=== PATIENT | female | born 1975 | race African-American/Black ===

== ENCOUNTER 2016-03-14 12:20 | Emergency (ER) | payer MEDICAID ==
[~2016-03-14] VITALS: Ht 165.1 cm; Wt 118.2 kg
[~2016-03-14 12:20] MED LIST: CARA1TAB6 PO; CHOL1CAP34 PO; CYANCRY IM; GABA600T PO; HYDR-3535 PO; MEDR10TA7 PO; OMEP40CA2 PO; POTA-243 PO; PROBCAP4 PO; TRAM50TA PO; VITA200013 PO; ZOFR8TAB PO
[2016-03-14 12:22] VITALS: BP 186/106; PULSE 68; RESP 20; TEMP 97.7; O2SAT 99
--- NOTE | 2016-03-14 13:22 | PD ---
HPI Chief Complaint: Edema Time Seen by Provider: 13:22 Travel History International Travel<30 days: No Contact w/Intl Traveler<30days: No Traveled to known affect area: No History of Present Illness HPI 40 year-old female with history of a gastric sleeve one year ago, lower extremity pain and swelling, presents to the emergency department for evaluation of bilateral lower extremity edema. Patient states she has been followed by Miss Domi Swain an outpatient. The leg swelling started quite some time ago. She's had bilateral lower extremity ultrasounds to rule out DVT. She has gone to physical therapy to help remove fluid. She states there has been an increase in her swelling over the last couple of days. She was seen by Domi and advised to come to emergency department for lab work. She states that she mentioned her kidneys may be a cause of the fluid. Patient states she has felt fine. She has had no fever or chills. No chest pain or tightness. No shortness of breath. PFSH Past Medical History Cancer: No Cardiovascular Problems: No Diabetes: No Diminished Hearing: No Gastrointestinal Disorders: Yes (GERD PRN) GERD: Yes Genitourinary: No Hepatitis: No Hiatal Hernia: No Musculoskeletal: Yes (BACK PAIN) Psychiatric: No Reproductive: No Respiratory: No Thyroid Disease: No ?: Not : 3 Para: 2 : 1 Past Surgical History Abdominal Surgery: Yes (2 C SEC) AICD: No Section: Yes (X2) Cholecystectomy: Yes Gynecologic Surgery: Yes (C SEC X 2) Joint Replacement: No Pacemaker: No Other Surgery: Yes (BARIATRIC SLEEVE) Social History Alcohol Use: No Tobacco Use: No Substance Use: No Allergies-Medications (Allergen,Severity, Reaction): Coded Allergies: Nonsteroidal Anti-Inflammatory Agts (Verified Allergy, Unknown, 01/13/16) PT TOLD NOT TO TAKE THIS AFTER HER BARIATRIC SURGERY Reported Meds & Prescriptions Reported Meds & Active Scripts Active Vitamin D (Cholecalciferol) 2,000 Unit Cap 1 Cap PO DAILY Vitamin D3 (Cholecalciferol) 50,000 Unit Cap 50,000 Units PO Q7D Gabapentin 600 Mg Tab 600 Mg PO HS Reported Tramadol (Tramadol HCl) 50 Mg Tab 50 Mg PO BID PRN Cyanocobalamin 1 Cry Cry 1,000 Mcg IM Q30 DAY Zofran (Ondansetron HCl) 8 Mg Tab 8 Mg PO DAILY Lortab (Hydrocodone-Acetaminophen) 10-325 Mg Tab 1 Tab PO Q4H PRN Medroxyprogesterone Acetate 10 Mg Tab 10 Mg PO DAILY Start day 21 Carafate (Sucralfate) 1 Gm Tab 1 Gm PO TID On empty stomach Probiotic Acidophilus (Probiotic Product) 1 Cap Cap 1 Tab PO TID Omeprazole 40 Mg Cap 40 Mg PO DAILY Klor-Con 10 (Potassium Chloride) 10 Meq Tab 20 Meq PO BID Review of Systems Except as stated in HPI: all other systems reviewed are Neg Physical Exam Narrative GENERAL: Well-nourished female patient, ambulatory and ankle no acute distress SKIN: Warm and dry. HEAD: Atraumatic. Normocephalic. EYES: Pupils equal and round. No scleral icterus. No injection or drainage. ENT: No nasal bleeding or discharge. Mucous membranes pink and moist. NECK: Trachea midline. No JVD. CARDIOVASCULAR: Regular rate and rhythm. No murmur appreciated. RESPIRATORY: No accessory muscle use. Clear to auscultation. Breath sounds equal bilaterally. GASTROINTESTINAL: Abdomen soft, non-tender, nondistended. Hepatic and splenic margins not palpable. MUSCULOSKELETAL: No obvious deformities. No clubbing. No cyanosis. Large lower extremities bilaterally with edema. Distal pulses are palpable. NEUROLOGICAL: Awake and alert. No obvious cranial nerve deficits. Motor grossly within normal limits. Normal speech. PSYCHIATRIC: Appropriate mood and affect; insight and judgment normal. Data Data Last Documented VS Vital Signs Date Time Temp Pulse Resp B/P Pulse Ox O2 Delivery O2 Flow Rate FiO2 03/14/16 12:22 97.7 68 20 186/106 99 Room Air Orders Complete Blood Count With Diff (03/14/16 13:21) Basic Metabolic Panel (Bmp) (03/14/16 13:21) B-Type Natriuretic Peptide (03/14/16 13:22) Urinalysis - C+S If Indicated (03/14/16 13:40) Urine Culture (03/14/16 13:34) Labs Laboratory Tests Test 03/14/16 03/14/16 13:31 13:34 White Blood Count 4.7 TH/MM3 Red Blood Count 3.39 MIL/MM3 Hemoglobin 12.0 GM/DL Hematocrit 35.5 % Mean Corpuscular Volume 104.8 FL Mean Corpuscular Hemoglobin 35.5 PG Mean Corpuscular Hemoglobin 33.8 % Concent Red Cell Distribution Width 20.4 % Platelet Count 153 TH/MM3 Mean Platelet Volume 10.7 FL Neutrophils (%) (Auto) 61.5 % Lymphocytes (%) (Auto) 31.0 % Monocytes (%) (Auto) 6.6 % Eosinophils (%) (Auto) 0.2 % Basophils (%) (Auto) 0.7 % Neutrophils # (Auto) 2.9 TH/MM3 Lymphocytes # (Auto) 1.5 TH/MM3 Monocytes # (Auto) 0.3 TH/MM3 Eosinophils # (Auto) 0.0 TH/MM3 Basophils # (Auto) 0.0 TH/MM3 CBC Comment DIFF FINAL Differential Comment Sodium Level 140 MEQ/L Potassium Level 2.8 MEQ/L Chloride Level 101 MEQ/L Carbon Dioxide Level 29.0 MEQ/L Anion Gap 10 MEQ/L Blood Urea Nitrogen 7 MG/DL Creatinine 0.77 MG/DL Estimat Glomerular Filtration 102 ML/MIN Rate Random Glucose 79 MG/DL Calcium Level 8.8 MG/DL B-Type Natriuretic Peptide 64 PG/ML Urine Color DARK-YELLOW Urine Turbidity HAZY Urine pH 5.5 Urine Specific [place] 1.026 Urine Protein 100 mg/dL Urine Glucose (UA) NEG mg/dL Urine Ketones TRACE mg/dL Urine Occult Blood NEG Urine Nitrite NEG Urine Bilirubin NEG Urine Urobilinogen 4.0 MG/DL Urine Leukocyte Esterase TRACE Urine RBC 1 /hpf Urine WBC 8 /hpf Urine Squamous Epithelial 10 /hpf Cells Urine Bacteria MOD /hpf Urine Mucus MANY /lpf Microscopic Urinalysis Comment CULTURE INDICATED MDM Medical Decision Making Medical Screen Exam Complete: Yes Emergency Medical Condition: Yes Medical Record Reviewed: Yes Differential Diagnosis Lymphedema versus electrolyte abnormality versus CHF versus DVT Narrative Course 40 year-old female presents to the emergency department for evaluation of lower extremity edema. Patient appears without distress. Her vital signs are stable. Workup is initiated in triage. Once a medical bed becomes available, patient will be transferred and care assumed by that provider. Beatriz Funes Mar 14, 2016 13:22
[2016-03-14 13:50] LABS: AUTOMATED NEUTROPHIL # 2.9 TH/MM3 (1.8-7.7); BASOPHIL % 0.7 % (0.0-2.0); EOSINOPHIL % 0.2 % (0.0-4.0); HEMATOCRIT 35.5 % (35.0-46.0); HEMO FLAGS DIFF FINAL; LYMPHOCYTE # 1.5 TH/MM3 (1.0-4.8); MEAN CELL VOLUME 104.8 FL (80.0-100.0); MEAN CORPUSCULAR HEMOGLOBIN 35.5 PG (27.0-34.0); MEAN CORPUSCULAR HGB CONC 33.8 % (32.0-36.0); MONO % 6.6 % (0.0-8.0); NEUT % 61.5 % (16.0-70.0); PLATELET COUNT 153 TH/MM3 (150-450); RED BLOOD COUNT 3.39 MIL/MM3 (4.00-5.30); RED CELL DISTRIBUTION WIDTH 20.4 % (11.6-17.2); WHITE BLOOD COUNT 4.7 TH/MM3 (4.0-11.0)
[2016-03-14 14:15] LABS: POTASSIUM 2.8 MEQ/L (3.5-5.1)
[2016-03-14 14:24] LABS: BACTERIA, URINE MOD /hpf; BLOOD, URINE NEG (NEG); GLUCOSE,URINE NEG (NEG); KETONE, URINE TRACE mg/dL (NEG); MUCUS URINE MANY /lpf (OCC); NITRITE,URINE NEG (NEG); PH, URINE 5.5 (5.0-8.5); SQUAMOUS EPITHELIAL CELL URINE 10 /hpf (0-5); URINE COLOR DARK-YELLOW (YELLW/STRAW)
[2016-03-14 14:28] LABS: COMMENT (UR) CULTURE INDICATED; CULTURE IF INDICATED CULTURE INDICATED
--- NOTE | 2016-03-14 14:40 | PD ---
Data Data Last Documented VS Vital Signs Date Time Temp Pulse Resp B/P Pulse Ox O2 Delivery O2 Flow Rate FiO2 03/14/16 12:22 97.7 68 20 186/106 99 Room Air Orders Complete Blood Count With Diff (03/14/16 13:21) Basic Metabolic Panel (Bmp) (03/14/16 13:21) B-Type Natriuretic Peptide (03/14/16 13:22) Urinalysis - C+S If Indicated (03/14/16 13:40) Urine Culture (03/14/16 13:34) Potassium Chloride (Kcl) (03/14/16 14:45) Electrocardiogram (03/14/16 ) Labs Laboratory Tests Test 03/14/16 03/14/16 13:31 13:34 White Blood Count 4.7 TH/MM3 Red Blood Count 3.39 MIL/MM3 Hemoglobin 12.0 GM/DL Hematocrit 35.5 % Mean Corpuscular Volume 104.8 FL Mean Corpuscular Hemoglobin 35.5 PG Mean Corpuscular Hemoglobin 33.8 % Concent Red Cell Distribution Width 20.4 % Platelet Count 153 TH/MM3 Mean Platelet Volume 10.7 FL Neutrophils (%) (Auto) 61.5 % Lymphocytes (%) (Auto) 31.0 % Monocytes (%) (Auto) 6.6 % Eosinophils (%) (Auto) 0.2 % Basophils (%) (Auto) 0.7 % Neutrophils # (Auto) 2.9 TH/MM3 Lymphocytes # (Auto) 1.5 TH/MM3 Monocytes # (Auto) 0.3 TH/MM3 Eosinophils # (Auto) 0.0 TH/MM3 Basophils # (Auto) 0.0 TH/MM3 CBC Comment DIFF FINAL Differential Comment Sodium Level 140 MEQ/L Potassium Level 2.8 MEQ/L Chloride Level 101 MEQ/L Carbon Dioxide Level 29.0 MEQ/L Anion Gap 10 MEQ/L Blood Urea Nitrogen 7 MG/DL Creatinine 0.77 MG/DL Estimat Glomerular Filtration 102 ML/MIN Rate Random Glucose 79 MG/DL Calcium Level 8.8 MG/DL B-Type Natriuretic Peptide 64 PG/ML Urine Color DARK-YELLOW Urine Turbidity HAZY Urine pH 5.5 Urine Specific [place] 1.026 Urine Protein 100 mg/dL Urine Glucose (UA) NEG mg/dL Urine Ketones TRACE mg/dL Urine Occult Blood NEG Urine Nitrite NEG Urine Bilirubin NEG Urine Urobilinogen 4.0 MG/DL Urine Leukocyte Esterase TRACE Urine RBC 1 /hpf Urine WBC 8 /hpf Urine Squamous Epithelial 10 /hpf Cells Urine Bacteria MOD /hpf Urine Mucus MANY /lpf Microscopic Urinalysis Comment CULTURE INDICATED MDM Supervised Visit with [facility]: Yes Interpretation(s) My review of EKG: Normal sinus rhythm rate of 61, normal axis, normal intervals , qtc 438. Narrative Course Assumed care patient. Patient with chronic lower extremity edema, worsening. Sent for evaluation of her kidneys. Kidney function is normal. She has chronic hypokalemia. She spoke to take 40 mg of potassium 4 times daily. She is not treated for the past 3 days she has not felt well. She gets lymphedema therapy where they placed wraps. She did the wraps off couple days ago to get some relief. She otherwise has been feeling well. Labs show hypokalemia, but normal renal function. We'll check EKG to make sure that there is no evidence of cardiac effects. Patient has potassium. We'll give her a dose here, she'll start taking her home dose. She'll return for any symptoms at all. Additional Instruction: Follow-up with her primary doctor for further management of your lower extremity swelling. Take potassium as prescribed. Return to emergency department for any fainting, weakness, or any other new or worsening symptoms. Med/Other Pt SpecificInfo: No Change to Meds Disposition: 01 DISCHARGE HOME Condition: Stable Lencho Linda MD Mar 14, 2016 14:40
[2016-03-14] MEDS ORDERED: POTASSIUM CHLORIDE 20 MEQ CONTROLLED RELEASE TAB PO ONE (14:45)
[2016-03-14 14:59] VITALS: BP 162/98; PULSE 61; RESP 20; O2SAT 100
--- NOTE | 2016-03-15 16:54 | EKG ---
Date Performed: 03/14/2016 Time Performed: 14:50:59 PTAGE: 40 years EKG: Sinus rhythm NONSPECIFIC T-WAVE ABNORMALITY Compared to prior tracing no significant change BORDERLINE ECG PREVIOUS TRACING : 07/08/2015 20.38 DOCTOR: Cat Ortega Interpretating Date/Time 03/15/2016 16:52:27
[2016-03-16] MEDS ORDERED: POTA-243 PO (13:05)
[2016-03-23] MEDS ORDERED: POTA10SO12 PO (16:12)
[2016-04-04] MEDS ORDERED: GABA600T PO (08:14)
[2016-04-15] MEDS ORDERED: CLON.1 PO (12:13)
[2016-04-15] MEDS ORDERED: LOSA50TA PO (12:37)
[2016-04-15] MEDS ORDERED: HYDR12.57 PO (12:37)
[2016-04-21] MEDS ORDERED: NIFE30TA61 PO (09:41)
[2016-05-10] MEDS ORDERED: OMEP40CA2 PO (08:02)
[2016-05-16] MEDS ORDERED: NIFE30TA61 PO (14:44)
[2016-06-02] MEDS ORDERED: AMOX500C PO (13:32)
[2016-06-02] MEDS ORDERED: SULF400T PO (13:32)
[2016-06-13] MEDS ORDERED: NIFE30TA61 PO (08:24)
[2016-06-22] MEDS ORDERED: ZOLO25TA PO (15:01)
[2016-07-01] MEDS ORDERED: GABA600T PO (08:09)
[2016-07-06] MEDS ORDERED: TRAZ50TA12 PO (13:45)
[2016-07-26] MEDS ORDERED: NIFE30TA61 PO (10:55)
[2016-08-01] MEDS ORDERED: ACET325C (14:49)
== END 2016-03-14 15:27 | disposition home or self-care (01) ==
LOC: NEPA 12:20
DX: E87.6 Hypokalemia (principal)
CPT/HCPCS: 80048; 81001; 83880; 85025; 87086; 93005

== ENCOUNTER 2016-04-10 08:12 | Inpatient (IN) | payer MEDICAID ==
[2016-04-10] VITALS (83 sets, daily range): BP systolic 124–232; BP diastolic 62–115; PULSE 60–94; RESP 16–22; TEMP 97.2–98.5; O2SAT 98–100
[~2016-04-10] VITALS: Ht 165.1 cm; Wt 126.3 kg
[~2016-04-10 08:12] MED LIST changes: -CARA1TAB6 PO; -POTA-243 PO; +POTA10SO12 PO; -PROBCAP4 PO; -TRAM50TA PO; -ZOFR8TAB PO
[2016-04-10] MEDS ORDERED: ENALAPRILAT 1.25 MG/ML VIAL IV PUSH ONE (09:00)
--- NOTE | 2016-04-10 09:50 | RADRPT ---
EXAM DATE/TIME: 04/10/2016 09:17 [facility] COMPARISON: No previous studies available for comparison. INDICATIONS : Dizziness. RADIATION DOSE: 39.89 CTDIvol (mGy) MEDICAL HISTORY : Hypertension. Gastroesophageal reflux disease. SURGICAL HISTORY : Cholecystectomy. ENCOUNTER: Initial ACUITY: 1 day PAIN SCALE: 0/10 LOCATION: cranial TECHNIQUE: Multiple contiguous axial images were obtained of the head. Using automated exposure control and adj ustment of the mA and/or kV according to patient size, radiation dose was kept as low as reasonably a chievable to obtain optimal diagnostic quality images. FINDINGS: CEREBRUM: The ventricles are normal for age. No evidence of midline shift, mass lesion, hemorrhage or acute in farction. No extra-axial fluid collections are seen. POSTERIOR FOSSA: The cerebellum and brainstem are intact. The 4th ventricle is midline. The cerebellopontine angle i s unremarkable. EXTRACRANIAL: The visualized portion of the orbits is intact. SKULL: The calvaria is intact. No evidence of skull fracture. CONCLUSION: No acute intracranial findings. Jim Kelsey MD on April 10, 2016 at 9:46 Board Certified Radiologist. This report was verified electronically.
[2016-04-10 10:36] LABS: AUTOMATED NEUTROPHIL # 3.9 TH/MM3 (1.8-7.7); BASOPHIL % 0.7 % (0.0-2.0); EOSINOPHIL % 0.1 % (0.0-4.0); HEMATOCRIT 37.2 % (35.0-46.0); HEMO FLAGS DIFF FINAL; LYMPH % 24.2 % (9.0-44.0); LYMPHOCYTE # 1.4 TH/MM3 (1.0-4.8); MEAN CELL VOLUME 108.4 FL (80.0-100.0); MEAN CORPUSCULAR HEMOGLOBIN 36.3 PG (27.0-34.0); MEAN CORPUSCULAR HGB CONC 33.5 % (32.0-36.0); MONO % 9.8 % (0.0-8.0); NEUT % 65.2 % (16.0-70.0); PLATELET COUNT 175 TH/MM3 (150-450); RED BLOOD COUNT 3.43 MIL/MM3 (4.00-5.30); RED CELL DISTRIBUTION WIDTH 20.5 % (11.6-17.2); WHITE BLOOD COUNT 5.9 TH/MM3 (4.0-11.0)
[2016-04-10 11:07] LABS: ANION GAP 12 MEQ/L (5-15); AST (GOT) 58 U/L (15-37); BICARBONATE 25.2 MEQ/L (21.0-32.0); BLOOD UREA NITROGEN 7 MG/DL (7-18); CHLORIDE 102 MEQ/L (98-107); GLOMERULAR FILTRATION RATE 117 ML/MIN (>89); POTASSIUM 3.5 MEQ/L (3.5-5.1); SODIUM (NA) 139 MEQ/L (136-145)
[2016-04-10 11:14] LABS: ALKALINE PHOSPHATASE 169 U/L (45-117); ALT (GPT) 42 U/L (10-53)
--- NOTE | 2016-04-10 11:21 | PD ---
HPI Chief Complaint: [employer] Problem/Complaint Time Seen by Provider: 08:28 Travel History International Travel<30 days: No Contact w/Intl Traveler<30days: No Traveled to known affect area: No History of Present Illness HPI This is a 40-year-old female with a history of obesity who is status post gastric bypass, who presents today with complaints of pelvic cramps with vaginal bleeding. The patient states she has not had a menstrual cycle for one year and tells she started having severe cramps with bleeding 2 days ago. The patient states she's passing large clots. She denies any vaginal discharge. She denies any dysuria urgency or frequency. Patient also states that she was seen by her primary care provider who noted she had elevated blood pressure and she was told to go to the ER. This was on Monday. She states that she did not come because she went home instead. The patient has no history of hypertension. There are no other complaints time my examination. PFSH Past Medical History Cancer: No Cardiovascular Problems: No Diabetes: No Diminished Hearing: No Gastrointestinal Disorders: Yes (GERD PRN) GERD: Yes (takes meds) Genitourinary: No Hepatitis: No Hiatal Hernia: No Hypertension: No (not diagnosed was supposed to come fri for htn did not) Musculoskeletal: Yes (BACK PAIN) Psychiatric: No Reproductive: No Respiratory: No Thyroid Disease: No Tetanus Vaccination: > 5 Years Influenza Vaccination: Yes ?: Unknown LMP: 1 YEAR AGO : 3 Para: 2 : 1 Past Surgical History Abdominal Surgery: Yes (2 C SEC) AICD: No Section: Yes (X2) Cholecystectomy: Yes Gynecologic Surgery: Yes (C SEC X 2) Joint Replacement: No Pacemaker: No Other Surgery: Yes (BARIATRIC SLEEVE) Social History Alcohol Use: No Tobacco Use: No Substance Use: No Allergies-Medications (Allergen,Severity, Reaction): Coded Allergies: Nonsteroidal Anti-Inflammatory Agts (Verified Allergy, Unknown, 04/10/16) PT TOLD NOT TO TAKE THIS AFTER HER BARIATRIC SURGERY Reported Meds & Prescriptions Reported Meds & Active Scripts Active Gabapentin 600 Mg Tab 600 Mg PO HS Potassium Chloride Liq (Potassium Chloride) 20 Meq/15 Ml Soln 20 Meq PO BID Vitamin D (Cholecalciferol) 2,000 Unit Cap 1 Cap PO DAILY Vitamin D3 (Cholecalciferol) 50,000 Unit Cap 50,000 Units PO Q7D Reported Lortab (Hydrocodone-Acetaminophen) 10-325 Mg Tab 1 Tab PO Q4H PRN Omeprazole 40 Mg Cap 40 Mg PO DAILY Review of Systems Except as stated in HPI: all other systems reviewed are Neg General / Constitutional: No: Fever, Chills HENT: Positive: Headaches (heaviness), Lightheadedness, No: Neck Pain Cardiovascular: Positive: Other (hypertension), No: Chest Pain or Discomfort, Palpitations Respiratory: No: Cough, Shortness of Breath Gastrointestinal: Positive: Abdominal Pain, No: Nausea, Vomiting Genitourinary: Positive: Pelvic Pain, Vaginal Bleeding (helmet cramps) Musculoskeletal: No: Weakness Neurologic: Positive: Headache (fullness, not true pain), No: Dizziness, Change in Mentation, Slurred Speech Physical Exam Narrative GENERAL: Well-nourished, well-developed patient. SKIN: Warm and dry. HEAD: Normocephalic/atraumatic. EYES: No scleral icterus. No injection or drainage. NECK: Supple, trachea midline. CARDIOVASCULAR: Regular rate and rhythm without murmurs, gallops, or rubs. RESPIRATORY: Breath sounds equal bilaterally. No accessory muscle use. GASTROINTESTINAL: Abdomen soft, obese, non-tender, nondistended. NEUROLOGICAL: Awake and alert. Cranial nerves II through XII intact. Motor grossly within normal limits. Five out of 5 muscle strength in all muscle groups. Normal speech. Data Data Last Documented VS Vital Signs Date Time Temp Pulse Resp B/P Pulse Ox O2 Delivery O2 Flow Rate FiO2 04/10/16 12:22 84 187/85 100 Nasal Cannula 2 04/10/16 08:34 98.3 20 Orders Complete Blood Count With Diff (04/10/16 08:48) Comprehensive Metabolic Panel (04/10/16 08:48) Urinalysis - C+S If Indicated (04/10/16 08:48) Iv Access Insert/Monitor (04/10/16 08:48) Ecg Monitoring (04/10/16 08:48) Ct Brain W/O Iv Contrast(Rout) (04/10/16 08:48) Enalaprilat Inj (Vasotec Inj) (04/10/16 09:00) Hydralazine Inj (Apresoline Inj) (04/10/16 12:00) Magnesium Sulfate 4 Gm Premix (Magnesium (04/10/16 12:00) Oxytocin Inj (Pitocin Inj) (04/10/16 12:15) Labetalol Inj (Trandate Inj) (04/10/16 12:15) Labs Laboratory Tests Test 04/10/16 04/10/16 10:05 11:05 White Blood Count 5.9 TH/MM3 Red Blood Count 3.43 MIL/MM3 Hemoglobin 12.4 GM/DL Hematocrit 37.2 % Mean Corpuscular Volume 108.4 FL Mean Corpuscular Hemoglobin 36.3 PG Mean Corpuscular Hemoglobin 33.5 % Concent Red Cell Distribution Width 20.5 % Platelet Count 175 TH/MM3 Mean Platelet Volume 10.0 FL Neutrophils (%) (Auto) 65.2 % Lymphocytes (%) (Auto) 24.2 % Monocytes (%) (Auto) 9.8 % Eosinophils (%) (Auto) 0.1 % Basophils (%) (Auto) 0.7 % Neutrophils # (Auto) 3.9 TH/MM3 Lymphocytes # (Auto) 1.4 TH/MM3 Monocytes # (Auto) 0.6 TH/MM3 Eosinophils # (Auto) 0.0 TH/MM3 Basophils # (Auto) 0.0 TH/MM3 CBC Comment DIFF FINAL Differential Comment Sodium Level 139 MEQ/L Potassium Level 3.5 MEQ/L Chloride Level 102 MEQ/L Carbon Dioxide Level 25.2 MEQ/L Anion Gap 12 MEQ/L Blood Urea Nitrogen 7 MG/DL Creatinine 0.68 MG/DL Estimat Glomerular Filtration 117 ML/MIN Rate Random Glucose 97 MG/DL Calcium Level 9.2 MG/DL Total Bilirubin 1.0 MG/DL Aspartate Amino Transf 58 U/L (AST/SGOT) Alanine Aminotransferase 42 U/L (ALT/SGPT) Alkaline Phosphatase 169 U/L Total Protein 6.5 GM/DL Albumin 2.8 GM/DL Urine Color YELLOW Urine Turbidity CLEAR Urine pH 8.0 Urine Specific [place] 1.020 Urine Protein GREATER THAN 600 mg/dL Urine Glucose (UA) NEG mg/dL Urine Ketones 40 mg/dL Urine Occult Blood TRACE Urine Nitrite NEG Urine Bilirubin NEG Urine Urobilinogen LESS THAN 2.0 MG/DL Urine Leukocyte Esterase NEG Urine RBC 1 /hpf Urine WBC 1 /hpf Urine Squamous Epithelial 1 /hpf Cells Urine Mucus FEW /lpf Microscopic Urinalysis Comment CATH-CULT NOT IND MDM Medical Decision Making Medical Screen Exam Complete: Yes Emergency Medical Condition: Yes Differential Diagnosis Hypertensive urgency versus uncontrolled hypertension Dysfunctional uterine bleeding versus ectopic Narrative Course This is a 40-year-old female who presents with complaints of elevated blood pressure head congestion and vaginal bleeding. The patient states she was seen by her primary care physician for lower extremity swelling and was noted to have elevated blood pressure. She states at that time she was told to come to the ER however she went home instead. She presents today because she's having the above symptoms with associated vaginal bleeding. The patient had a CT scan was given Vasotec 1.25 mg I V. After we sent off blood work we were preparing to do a pelvic exam and she stated she needed to use the restroom. She sat on the bedside commode and passed a large amount of blood followed by a 25+ week fetus. The patient did not know she was . Please note that Dr. Juares , on-call OB hospitalist was gracious enough to come down and evaluate the patient with her team. Given the fact that we know now she was with her head congestion elevated blood pressure and edematous lower extremities, it appears she likely had preeclampsia. He was given 10 mg of IVD hydralazine. Her pressure still remained high and she was given 20 mg of labetalol and had a magnesium drip started. She'll be admitted to the OB hospitalist service. Diagnosis Primary Impression: Pre-eclampsia affecting childbirth Additional Impression: Spontaneous Bob Medina MD Apr 10, 2016 11:21
[2016-04-10 11:41] LABS: BLOOD, URINE TRACE (NEG); GLUCOSE,URINE NEG (NEG); KETONE, URINE 40 mg/dL (NEG); MUCUS URINE FEW /lpf (OCC); NITRITE,URINE NEG (NEG); SQUAMOUS EPITHELIAL CELL URINE 1 /hpf (0-5); URINE COLOR YELLOW (YELLW/STRAW)
[2016-04-10 11:42] LABS: COMMENT (UR) CATH-CULT NOT IND; CULTURE IF INDICATED CATH CULTURE NOT IND
[2016-04-10] MEDS ORDERED: hydrALAZINE HCL 20 MG/ML VIAL IV PUSH ONE (12:00)
[2016-04-10] MEDS ORDERED: MAGNESIUM SULFATE 4 GM PREMIX 100 ML IV ONE (12:00)
[2016-04-10] MEDS ORDERED: OXYTOCIN 10 UNIT/ML AMP IM ONE (12:15)
[2016-04-10] MEDS ORDERED: LABETALOL HCL 100 MG/20 ML VIAL IV PUSH ONE (12:15)
[2016-04-10] MEDS ORDERED: LACTATED RINGER'S 1000 ML INJ 1,000 ML IV SCH (12:51)
[2016-04-10] MEDS ORDERED: DOCUSATE SODIUM 100 MG CAP PO PRN (13:00)
[2016-04-10] MEDS ORDERED: CALCIUM GLUCONATE 10% 1 GM/10 ML VIAL IV PUSH PRN (13:00)
[2016-04-10] MEDS ORDERED: ONDANSETRON HCL 4 MG/2 ML VIAL IV PRN (13:00)
--- NOTE | 2016-04-10 13:06 | PD.CONS ---
History & Physical H&P HPI HPI Chief Complaint Called to ER following Date Seen: Apr 10, 2016 Travel History International Travel<30 Days: No Contact w/Intl Traveler<30Days: No Known Affected Area: No History of Present Illness HPI 40 yo who presented to the ER this morning for abdominal pain since last evening. She reports having a gastric sleeve one year ago MAR 2015, and was doing well. She has no history of chronic hypertension. She had been on Depo Provera for 8 years with amenorrhea. But for the past 3 years was oligomenorrheic with menses about 2 x year. She was on Provera 10mg daily during the past year, and no control. Her last menses was June 2015. She has seen her primary care provider for worsening LE edema, hypokalemia over the past several months. On Mar 14, 2016 she was seen in the ER for hypokalemia, edema, and her BPs were noted to be 180s/110s. Her labs and EKG were normal. Her BPs continued to increase on f/u office visits BPs 220/120, and on Monday she was instructed to go to the ER for evaluation. She was asymptomatic and waited to present to the ER. Last evening she began to have lower abdominal cramping that was cyclic about every 5 min which she thought was from something she had eaten. This AM the pain worsened. While in the ER, while on the commode she had vaginal bleeding and delivered a non-viable fetus. The patient was unaware she was . History (Limited) History Past Medical History Narrative Medical Obesity Oligomenorrhea Chronic Lymphedema Hypokalemia Past Surgical History Narrative Surgical x 2 at term - last 16 years ago Gastric Sleeve MAR 2015 Family History Family History: Negative Social History Alcohol Use: No Tobacco Use: No Substance Abuse: No Allergies-Medications Allergies-Medications (Allergen,Severity, Reaction): Coded Allergies: Nonsteroidal Anti-Inflammatory Agts (Verified Allergy, Unknown, 04/10/16) PT TOLD NOT TO TAKE THIS AFTER HER BARIATRIC SURGERY Home Meds Active Scripts Gabapentin 600 Mg [id number] Mg PO HS #90 TAB Ref 0 Prov:Gaby Schuler CAR DETAILER 04/04/16 Potassium Chloride Liq 20 Meq/15 Ml Soln20 Meq PO BID #900 ML Ref 3 Prov:Domi Cohen [facility] 03/23/16 Cholecalciferol (Vitamin D)2,000 Unit Cap1 Cap PO DAILY #90 CAP Ref 1 Prov:Domi Cohen [employer] DETAILER 01/13/16 Cholecalciferol (Vitamin D3)50,000 Unit Cap50,000 Units PO Q7D #10 BOTTLE Ref 0 Prov:Domi Cohen [facility] 01/13/16 Reported Medications Hydrocodone-Acetaminophen (Lortab)10-325 Mg Tab1 Tab PO Q4H PRN (PAIN) Ref 0 01/13/16 Omeprazole 40 Mg Cap40 Mg PO DAILY #30 CAP Ref 0 01/13/16 Discontinued Reported Medications Cyanocobalamin 1 Cry Cry1,000 Mcg IM q30 day 01/13/16 Discontinued Scripts Gabapentin 600 Mg [id number] Mg PO HS #90 TAB Ref 0 Prov:Domi Cohen [facility] 01/13/16 ROS Review of Systems General / Constitutional: No: Fever, Chills Eyes: No: Blurred Vision, Visual changes HENT: No: Headaches, Lightheadedness Cardiovascular: No: Chest Pain or Discomfort, Palpitations Respiratory: No: Cough, Short of Breath Gastrointestinal: Nausea, Abdominal Pain (cramping), No: Vomiting, Diarrhea Genitourinary: Vaginal Bleeding, No: Urgency, Frequency, Dysuria Musculoskeletal: Edema Skin: Rash (in groin), No Itching Neurologic: No: Syncope, Focal Abnormalities, Seizures Hematologic/Lymphatic: No Easy Bruising, No Lymph Node Enlargement Physical Exam Physical Exam Vital Signs Date Time Temp Pulse Resp B/P Pulse Ox O2 Delivery O2 Flow Rate FiO2 04/10/16 12:22 84 187/85 100 Nasal Cannula 2 04/10/16 08:34 98.3 60 20 184/95 99 Room Air 04/10/16 08:18 97.2 74 16 202/96 98 Narrative Received call from ER to L&D front office director at 11:50am and reported immediately to the ER with 2 L&D RNs. GENERAL: Well-nourished, well-developed patient. SKIN: Warm and dry. HEAD: Normocephalic and atraumatic. EYES: No scleral icterus. No injection or drainage. ENT: No nasal drainage noted. Mucous membranes pink. Airway patent. NECK: Supple, trachea midline. No JVD. CARDIOVASCULAR: Mild tachycardia. BPs >218/100 RESPIRATORY: No accessory muscle use. ABDOMEN/GI: Abdomen soft, non-tender, no rebound, no guarding Uterus U-2, NT firm GENITOURINARY: External Genitalia: intact and normal in appearance Clot removed from vaginal vault. Bleeding with small trickle. Bladder is full. Groin with excessive power - patient has placed secondary to rash. EXTREMITIES: No cyanosis. +LE edema BACK: Nontender without obvious deformity. Normal ROM NEUROLOGICAL: Awake and alert. Motor and sensory grossly within normal limits. Five out of 5 muscle strength in all muscle groups. Normal speech. Fetus and Placenta inspected. Removed from commode and placed in [place]. Fetus and Placenta were connected. Placenta intact, small. Otherwise grossly normal. Cord cut and placenta sent to pathology Fetus 28-32 weeks? Late second trimester to early third trimester. skin c/w prolonged IUFD. Low set ears? Male. Data Data Data Vital Signs Reviewed: Yes Orders Complete Blood Count With Diff (04/10/16 08:48) Comprehensive Metabolic Panel (04/10/16 08:48) Urinalysis - C+S If Indicated (04/10/16 08:48) Iv Access Insert/Monitor (04/10/16 08:48) Ecg Monitoring (04/10/16 08:48) Ct Brain W/O Iv Contrast(Rout) (04/10/16 08:48) Enalaprilat Inj (Vasotec Inj) (04/10/16 09:00) Hydralazine Inj (Apresoline Inj) (04/10/16 12:00) Magnesium Sulfate 4 Gm Premix (Magnesium (04/10/16 12:00) Oxytocin Inj (Pitocin Inj) (04/10/16 12:15) Labetalol Inj (Trandate Inj) (04/10/16 12:15) Admit Order (Ed Use Only) (04/10/16 12:44) Code Status (04/10/16 12:51) Vital Signs (Adult) Q5MX4,Q15MX4,Q30MX2,Q1H (04/10/16 12:51) Resp Pulse Oximetry (04/10/16 ) Activity Bed Rest (04/10/16 12:51) ^ Notify Dr. Schwartz (04/10/16 12:51) Urinary Catheter Management SEBASTIEN.Q8H (04/10/16 12:51) ^ Check Deep Tendon Reflexes Q1H (04/10/16 12:51) Diet Npo (04/10/16 Lunch) Lactated Ringer's 1000 Ml Inj (Lr 1000 M (04/10/16 12:51) Magnesium Sulfate 40 Gm Premix (Magnesiu (04/10/16 12:51) Labetalol Inj (Trandate Inj) (04/10/16 14:00) Calcium Gluconate Inj (Calcium Gluconate (04/10/16 13:00) Ondansetron Inj (Zofran Inj) (04/10/16 13:00) Docusate Sodium (Colace) (04/10/16 13:00) Ice / Cold Pack PRN (04/10/16 12:51) ^ Rhogam (04/10/16 12:51) Odtsxei-Ikxpx-Msayuto Inj (M-M-R Ii Inj) (04/10/16 16:00) Sihw-Vwp-Paxhcz (Booster) Inj (Boostrix (04/10/16 16:00) Rubella Immune Status (04/10/16 12:51) Hepatitis Profile (04/10/16 12:51) Rapid Plasma Regin (Rpr) W Ttr (04/10/16 12:51) Type And Screen (04/10/16 12:51) No Care Spec Serology (04/10/16 12:51) Scd Bilateral/Knee High SEBASTIEN.QSHIFT (04/10/16 12:51) Gc And Chlamydia Pcr (04/10/16 12:51) Uric Acid (04/10/16 12:59) Oxytocin 30 Units-500ml Premix (Pitocin (04/10/16 13:15) Sodium Chloride 0.9% Flush (Ns Flush) (04/10/16 21:00) Sodium Chloride 0.9% Flush (Ns Flush) (04/10/16 13:15) Complete Blood Count With Diff (04/11/16 06:00) Ketorolac Inj (Toradol Inj) (04/10/16 13:15) Labs Vital Signs Date Time Temp Pulse Resp B/P Pulse Ox O2 Delivery O2 Flow Rate FiO2 04/10/16 12:22 84 187/85 100 Nasal Cannula 2 04/10/16 08:34 98.3 60 20 184/95 99 Room Air 04/10/16 08:18 97.2 74 16 202/96 98 Laboratory Tests Test 04/10/16 04/10/16 10:05 11:05 White Blood Count 5.9 Red Blood Count 3.43 Hemoglobin 12.4 Hematocrit 37.2 Mean Corpuscular Volume 108.4 Mean Corpuscular Hemoglobin 36.3 Mean Corpuscular Hemoglobin 33.5 Concent Red Cell Distribution Width 20.5 Platelet Count 175 Mean Platelet Volume 10.0 Neutrophils (%) (Auto) 65.2 Lymphocytes (%) (Auto) 24.2 Monocytes (%) (Auto) 9.8 Eosinophils (%) (Auto) 0.1 Basophils (%) (Auto) 0.7 Neutrophils # (Auto) 3.9 Lymphocytes # (Auto) 1.4 Monocytes # (Auto) 0.6 Eosinophils # (Auto) 0.0 Basophils # (Auto) 0.0 CBC Comment DIFF FINAL Differential Comment Sodium Level 139 Potassium Level 3.5 Chloride Level 102 Carbon Dioxide Level 25.2 Anion Gap 12 Blood Urea Nitrogen 7 Creatinine 0.68 Estimat Glomerular Filtration 117 Rate Random Glucose 97 Calcium Level 9.2 Total Bilirubin 1.0 Aspartate Amino Transf 58 (AST/SGOT) Alanine Aminotransferase 42 (ALT/SGPT) Alkaline Phosphatase 169 Total Protein 6.5 Albumin 2.8 Urine Color YELLOW Urine Turbidity CLEAR Urine pH 8.0 Urine Specific [place] 1.020 Urine Protein GREATER THAN 600 Urine Glucose (UA) NEG Urine Ketones 40 Urine Occult Blood TRACE Urine Nitrite NEG Urine Bilirubin NEG Urine Urobilinogen LESS THAN 2.0 Urine Leukocyte Esterase NEG Urine RBC 1 Urine WBC 1 Urine Squamous Epithelial 1 Cells Urine Mucus FEW Microscopic Urinalysis Comment CATH-CULT NOT IND OB Assessment/Plan Assessment/Plan Assessment and Plan IUFD -possible early third trimester IUFD -precipitous delivery -patient was not aware of until delivery - labs obtained -glucose WNL -type and screen pending -repeat CBC -IM Pitocin given in ER -GC/CH, UA negative for infection -placental culture obtained HELLP Syndrome -presented with severely elevated BPs for one month -mildly elevated AST -significant proteinuria -platelets WNL -repeat Hgb after hydration -given hydralazine and labetalol IV in ER, BPs now responding. Will start on po Labetalol. -Magnesium Sulfate 4g load started in ER, continue @ 2g/hour -good urine output, Una Montiel MD Apr 10, 2016 13:24 Una Juares MD Apr 10, 2016 13:05
[2016-04-10] MEDS ORDERED: KETOROLAC TROMETHAMINE 30 MG/ML (IVP) VIAL IV PUSH ONE (13:15)
[2016-04-10] MEDS ORDERED: OXYTOCIN 30 UNITS-500ML PREMIX 500 ML IV ONE (13:15)
[2016-04-10] MEDS ORDERED: SODIUM CHLORIDE 0.9% FLUSH 5 ML FLUSH IV PRN (13:15)
--- NOTE | 2016-04-10 13:25 | HHI.HP ---
HPI Chief Complaint Called to ER following Date Seen: Apr 10, 2016 Travel History International Travel<30 Days: No Contact w/Intl Traveler<30Days: No Known Affected Area: No History of Present Illness HPI 40 yo who presented to the ER this morning for abdominal pain since last evening. She reports having a gastric sleeve one year ago MAR 2015, and was doing well. She has no history of chronic hypertension. She had been on Depo Provera for 8 years with amenorrhea. But for the past 3 years was oligomenorrheic with menses about 2 x year. She was on Provera 10mg daily during the past year, and no control. Her last menses was June 2015. She has seen her primary care provider for worsening LE edema, hypokalemia over the past several months. On Mar 14, 2016 she was seen in the ER for hypokalemia, edema, and her BPs were noted to be 180s/110s. Her labs and EKG were normal. Her BPs continued to increase on f/u office visits BPs 220/120, and on Monday she was instructed to go to the ER for evaluation. She was asymptomatic and waited to present to the ER. Last evening she began to have lower abdominal cramping that was cyclic about every 5 min which she thought was from something she had eaten. This AM the pain worsened. While in the ER, while on the commode she had vaginal bleeding and delivered a non-viable fetus. The patient was unaware she was . History Past Medical History Narrative Medical Obesity Oligomenorrhea Chronic Lymphedema Hypokalemia Past Surgical History Narrative Surgical x 2 at term - last 16 years ago Gastric Sleeve MAR 2015 Family History Family History: Negative Social History Alcohol Use: No Tobacco Use: No Substance Abuse: No Allergies-Medications (Allergen,Severity, Reaction): Coded Allergies: Nonsteroidal Anti-Inflammatory Agts (Verified Allergy, Unknown, 04/10/16) PT TOLD NOT TO TAKE THIS AFTER HER BARIATRIC SURGERY Home Meds Active Scripts Gabapentin 600 Mg Dew379 Mg PO HS #90 TAB Ref 0 Prov:Gaby Schuler [employer]AL[employer] CONTROL MICROBIOLOGIST 04/04/16 Potassium Chloride Liq 20 Meq/15 Ml Soln20 Meq PO BID #900 ML Ref 3 Prov:Domi Cohen [employer] MICROBIOLOGIST 03/23/16 Cholecalciferol (Vitamin D)2,000 Unit Cap1 Cap PO DAILY #90 CAP Ref 1 Prov:Domi Cohen [facility] 01/13/16 Cholecalciferol (Vitamin D3)50,000 Unit Cap50,000 Units PO Q7D #10 BOTTLE Ref 0 Prov:Domi Cohen [facility] 01/13/16 Reported Medications Hydrocodone-Acetaminophen (Lortab)10-325 Mg Tab1 Tab PO Q4H PRN (PAIN) Ref 0 01/13/16 Omeprazole 40 Mg Cap40 Mg PO DAILY #30 CAP Ref 0 01/13/16 Discontinued Reported Medications Cyanocobalamin 1 Cry Cry1,000 Mcg IM q30 day 01/13/16 Discontinued Scripts Gabapentin 600 Mg Gqq300 Mg PO HS #90 TAB Ref 0 Prov:Domi Cohen [facility] 01/13/16 Review of Systems General / Constitutional: No: Fever, Chills Eyes: No: Blurred Vision, Visual changes HENT: No: Headaches, Lightheadedness Cardiovascular: No: Chest Pain or Discomfort, Palpitations Respiratory: No: Cough, Short of Breath Gastrointestinal: Nausea, Abdominal Pain (cramping), No: Vomiting, Diarrhea Genitourinary: Vaginal Bleeding, No: Urgency, Frequency, Dysuria Musculoskeletal: Edema Skin: Rash (in groin), No Itching Neurologic: No: Syncope, Focal Abnormalities, Seizures Hematologic/Lymphatic: No Easy Bruising, No Lymph Node Enlargement Physical Exam Vital Signs Date Time Temp Pulse Resp B/P Pulse Ox O2 Delivery O2 Flow Rate FiO2 04/10/16 12:22 84 187/85 100 Nasal Cannula 2 04/10/16 08:34 98.3 60 20 184/95 99 Room Air 04/10/16 08:18 97.2 74 16 202/96 98 Narrative Received call from ER to L&D manager front at 11:50am and reported immediately to the ER with 2 L&D RNs. GENERAL: Well-nourished, well-developed patient. SKIN: Warm and dry. HEAD: Normocephalic and atraumatic. EYES: No scleral icterus. No injection or drainage. ENT: No nasal drainage noted. Mucous membranes pink. Airway patent. NECK: Supple, trachea midline. No JVD. CARDIOVASCULAR: Mild tachycardia. BPs >218/100 RESPIRATORY: No accessory muscle use. ABDOMEN/GI: Abdomen soft, non-tender, no rebound, no guarding Uterus U-2, NT firm GENITOURINARY: External Genitalia: intact and normal in appearance Clot removed from vaginal vault. Bleeding with small trickle. Bladder is full. Groin with excessive power - patient has placed secondary to rash. EXTREMITIES: No cyanosis. +LE edema BACK: Nontender without obvious deformity. Normal ROM NEUROLOGICAL: Awake and alert. Motor and sensory grossly within normal limits. Five out of 5 muscle strength in all muscle groups. Normal speech. Fetus and Placenta inspected. Removed from commode and placed in [place]. Fetus and Placenta were connected. Placenta intact, small. Otherwise grossly normal. Cord cut and placenta sent to pathology Fetus 28-32 weeks? Late second trimester to early third trimester. skin c/w prolonged IUFD. Low set ears? Male. Data Data Vital Signs Reviewed: Yes Orders Complete Blood Count With Diff (04/10/16 08:48) Comprehensive Metabolic Panel (04/10/16 08:48) Urinalysis - C+S If Indicated (04/10/16 08:48) Iv Access Insert/Monitor (04/10/16 08:48) Ecg Monitoring (04/10/16 08:48) Ct Brain W/O Iv Contrast(Rout) (04/10/16 08:48) Enalaprilat Inj (Vasotec Inj) (04/10/16 09:00) Hydralazine Inj (Apresoline Inj) (04/10/16 12:00) Magnesium Sulfate 4 Gm Premix (Magnesium (04/10/16 12:00) Oxytocin Inj (Pitocin Inj) (04/10/16 12:15) Labetalol Inj (Trandate Inj) (04/10/16 12:15) Admit Order (Ed Use Only) (04/10/16 12:44) Code Status (04/10/16 12:51) Vital Signs (Adult) Q5MX4,Q15MX4,Q30MX2,Q1H (04/10/16 12:51) Resp Pulse Oximetry (04/10/16 ) Activity Bed Rest (04/10/16 12:51) ^ Notify Parameters (04/10/16 12:51) Urinary Catheter Management SEBASTIEN.Q8H (04/10/16 12:51) ^ Check Deep Tendon Reflexes Q1H (04/10/16 12:51) Diet Npo (04/10/16 Lunch) Lactated Ringer's 1000 Ml Inj (Lr 1000 M (04/10/16 12:51) Magnesium Sulfate 40 Gm Premix (Magnesiu (04/10/16 12:51) Labetalol Inj (Trandate Inj) (04/10/16 14:00) Calcium Gluconate Inj (Calcium Gluconate (04/10/16 13:00) Ondansetron Inj (Zofran Inj) (04/10/16 13:00) Docusate Sodium (Colace) (04/10/16 13:00) Ice / Cold Pack PRN (04/10/16 12:51) ^ Rhogam (04/10/16 12:51) Wkzatax-Yzhuv-Tmphkef Inj (M-M-R Ii Inj) (04/10/16 16:00) Gjko-Rph-Ltxdqd (Booster) Inj (Boostrix (04/10/16 16:00) Rubella Immune Status (04/10/16 12:51) Hepatitis Profile (04/10/16 12:51) Rapid Plasma Regin (Rpr) W Ttr (04/10/16 12:51) Type And Screen (04/10/16 12:51) No Care Spec Serology (04/10/16 12:51) Scd Bilateral/Knee High SEBASTIEN.QSHIFT (04/10/16 12:51) Gc And Chlamydia Pcr (04/10/16 12:51) Uric Acid (04/10/16 12:59) Oxytocin 30 Units-500ml Premix (Pitocin (04/10/16 13:15) Sodium Chloride 0.9% Flush (Ns Flush) (04/10/16 21:00) Sodium Chloride 0.9% Flush (Ns Flush) (04/10/16 13:15) Complete Blood Count With Diff (04/11/16 06:00) Ketorolac Inj (Toradol Inj) (04/10/16 13:15) Labs Vital Signs Date Time Temp Pulse Resp B/P Pulse Ox O2 Delivery O2 Flow Rate FiO2 04/10/16 12:22 84 187/85 100 Nasal Cannula 2 04/10/16 08:34 98.3 60 20 184/95 99 Room Air 2/19/17 08:18 97.2 74 16 202/96 98 Laboratory Tests Test 04/10/16 04/10/16 10:05 11:05 White Blood Count 5.9 Red Blood Count 3.43 Hemoglobin 12.4 Hematocrit 37.2 Mean Corpuscular Volume 108.4 Mean Corpuscular Hemoglobin 36.3 Mean Corpuscular Hemoglobin 33.5 Concent Red Cell Distribution Width 20.5 Platelet Count 175 Mean Platelet Volume 10.0 Neutrophils (%) (Auto) 65.2 Lymphocytes (%) (Auto) 24.2 Monocytes (%) (Auto) 9.8 Eosinophils (%) (Auto) 0.1 Basophils (%) (Auto) 0.7 Neutrophils # (Auto) 3.9 Lymphocytes # (Auto) 1.4 Monocytes # (Auto) 0.6 Eosinophils # (Auto) 0.0 Basophils # (Auto) 0.0 CBC Comment DIFF FINAL Differential Comment Sodium Level 139 Potassium Level 3.5 Chloride Level 102 Carbon Dioxide Level 25.2 Anion Gap 12 Blood Urea Nitrogen 7 Creatinine 0.68 Estimat Glomerular Filtration 117 Rate Random Glucose 97 Calcium Level 9.2 Total Bilirubin 1.0 Aspartate Amino Transf 58 (AST/SGOT) Alanine Aminotransferase 42 (ALT/SGPT) Alkaline Phosphatase 169 Total Protein 6.5 Albumin 2.8 Urine Color YELLOW Urine Turbidity CLEAR Urine pH 8.0 Urine Specific [place] 1.020 Urine Protein GREATER THAN 600 Urine Glucose (UA) NEG Urine Ketones 40 Urine Occult Blood TRACE Urine Nitrite NEG Urine Bilirubin NEG Urine Urobilinogen LESS THAN 2.0 Urine Leukocyte Esterase NEG Urine RBC 1 Urine WBC 1 Urine Squamous Epithelial 1 Cells Urine Mucus FEW Microscopic Urinalysis Comment CATH-CULT NOT IND Assessment/Plan Assessment and Plan IUFD -possible early third trimester IUFD -precipitous delivery -patient was not aware of until delivery - labs obtained -glucose WNL -type and screen pending -repeat CBC -IM Pitocin given in ER -GC/CH, UA negative for infection -placental culture obtained HELLP Syndrome -presented with severely elevated BPs for one month -mildly elevated AST -significant proteinuria -platelets WNL -repeat Hgb after hydration -given hydralazine and labetalol IV in ER, BPs now responding. Will start on po Labetalol. -Magnesium Sulfate 4g load started in ER, continue @ 2g/hour -good urine output, ta Wiedel,Aidee MD Apr 10, 2016 13:24
[2016-04-10] MEDS: MAGNESIUM SULFATE 40 GM PREMIX 1,000 ML IV SCH (13:28)
[2016-04-10] MEDS ORDERED: LABETALOL HCL 100 MG/20 ML VIAL IV PUSH PRN (14:00)
[2016-04-10 15:50] LABS: HEMATOCRIT 27.1 % (35.0-46.0); MEAN CELL VOLUME 110.3 FL (80.0-100.0); MEAN CORPUSCULAR HEMOGLOBIN 35.8 PG (27.0-34.0); MEAN CORPUSCULAR HGB CONC 32.5 % (32.0-36.0); PLATELET COUNT 48 TH/MM3 (150-450); RED BLOOD COUNT 2.46 MIL/MM3 (4.00-5.30); RED CELL DISTRIBUTION WIDTH 20.5 % (11.6-17.2); WHITE BLOOD COUNT 8.9 TH/MM3 (4.0-11.0)
[2016-04-10 16:00] LABS: REVIEW FLAG FINAL
[2016-04-10] MEDS ORDERED: MEASLES, MUMPS, RUBELLA VACCINE 0.5 ML VIAL SQ ONE (16:00)
[2016-04-10] MEDS ORDERED: DIPHTH/TETANUS/ACEL PERTUSSIS (BOOSTER) 0.5 ML VIAL/PFS IM ONE (16:00)
[2016-04-10 16:23] LABS: RUBELLA IGG ANTIBODY 3.7 IU/mL (10.0-500.0); RUBELLA STATUS NON-IMMUNE (IMMUNE)
[2016-04-10] MEDS ORDERED: MORPHINE SULFATE 4 MG/ML INJ IV PUSH ONE (18:45)
[2016-04-10 18:53] LABS: AMPHETAMINE, URINE NEG (NEG); BARBITURATES, URINE NEG (NEG); COCAINE, URINE NEG (NEG)
[2016-04-10 20:35] LABS: CHLAMYDIA PCR NOT DETECTED (NOT DETECT); NEISSERIA PCR NOT DETECTED (NOT DETECT)
[2016-04-10] MEDS ORDERED: SODIUM CHLORIDE 0.9% FLUSH 5 ML FLUSH IV SCH (21:00)
[2016-04-10 21:59] LABS: AUTOMATED NEUTROPHIL # 6.8 TH/MM3 (1.8-7.7); BASOPHIL # 0.1 TH/MM3 (0-0.2); BASOPHIL % 0.9 % (0.0-2.0); EOSINOPHIL % 0.1 % (0.0-4.0); HEMATOCRIT 29.4 % (35.0-46.0); HEMO FLAGS DIFF FINAL; LYMPHOCYTE # 1.3 TH/MM3 (1.0-4.8); MEAN CELL VOLUME 108.5 FL (80.0-100.0); MEAN CORPUSCULAR HEMOGLOBIN 35.8 PG (27.0-34.0); MONO % 7.5 % (0.0-8.0); NEUT % 76.5 % (16.0-70.0); PLATELET COUNT 160 TH/MM3 (150-450); RED BLOOD COUNT 2.71 MIL/MM3 (4.00-5.30); RED CELL DISTRIBUTION WIDTH 20.2 % (11.6-17.2); WHITE BLOOD COUNT 8.9 TH/MM3 (4.0-11.0)
[2016-04-10 22:07] LABS: INTERNATIONAL NORMALIZED RATIO 0.9 RATIO; PROTHROMBIN TIME - PATIENT 10.3 SEC (9.8-11.6)
[2016-04-10 22:30] LABS: ALKALINE PHOSPHATASE 128 U/L (45-117); ALT (GPT) 31 U/L (10-53); ANION GAP 10 MEQ/L (5-15); AST (GOT) 43 U/L (15-37); BICARBONATE 27.2 MEQ/L (21.0-32.0); BLOOD UREA NITROGEN 6 MG/DL (7-18); CHLORIDE 104 MEQ/L (98-107); GLOMERULAR FILTRATION RATE 163 ML/MIN (>89); POTASSIUM 3.5 MEQ/L (3.5-5.1); SODIUM (NA) 141 MEQ/L (136-145); TOTAL BILIRUBIN ADULT 0.8 MG/DL (0.2-1.0)
[2016-04-10] MEDS ORDERED: ZOLPIDEM TARTRATE 5 MG TAB PO ONE (23:00)
[2016-04-10] MEDS: NYSTATIN 100,000 UNIT/GM CREAM 15 GM TOPICAL SCH (23:15)
[2016-04-11] MEDS: MAGNESIUM SULFATE 40 GM PREMIX 1,000 ML IV SCH (08:21)
[2016-04-11] MEDS: NYSTATIN 100,000 UNIT/GM CREAM 15 GM TOPICAL SCH (08:22)
--- NOTE | 2016-04-11 09:21 | HHI.OB ---
Subjective Remarks 40 year old post- day one after spontaneous vaginal delivery of a non -viable fetus, also with pre-eclampsia and possible HELLP syndrome. Blood pressures now well controlled and on magnesium sulfate since yesterday afternoon. She has a headache this morning, but no visual blurring, visual spots , epigastric pain, or edema. She reports that besides the headache she feels fine. She has minimal lochia. (Chad Murillo MD R2) Remarks Patient has MERCADO this am. No other symptoms. +appetite. tolerating liquid diet. No N/V/abd pain. (Una Juares MD) Objective Vitals/I&O Vital Signs Date Time Temp Pulse Resp B/P Pulse Ox O2 Delivery O2 Flow Rate FiO2 04/10/16 20:20 98.5 04/10/16 20:01 88 124/68 04/10/16 20:00 86 98 04/10/16 19:20 20 04/10/16 19:10 20 04/10/16 19:05 93 99 04/10/16 19:01 91 126/62 04/10/16 19:00 91 99 04/10/16 18:55 89 99 04/10/16 18:50 90 99 04/10/16 18:45 88 99 04/10/16 18:40 90 99 04/10/16 18:35 94 99 04/10/16 18:30 90 100 04/10/16 18:25 89 100 04/10/16 18:20 89 99 04/10/16 18:15 87 100 04/10/16 18:10 87 100 04/10/16 18:05 85 100 04/10/16 18:01 146/72 04/10/16 18:01 87 04/10/16 18:00 85 100 04/10/16 17:55 85 100 04/10/16 17:50 100 04/10/16 17:50 89 04/10/16 17:45 100 04/10/16 17:45 88 04/10/16 17:40 100 04/10/16 17:40 86 04/10/16 17:35 88 04/10/16 17:35 100 04/10/16 17:30 100 04/10/16 17:30 82 04/10/16 17:25 100 2/19/17 17:25 85 2/19/17 17:20 100 2/19/17 17:20 86 2/19/17 17:15 89 2/19/17 17:15 100 2/19/17 17:10 84 2/19/17 17:10 100 2/19/17 17:05 84 100 2/19/17 17:01 81 149/83 2/19/17 17:00 81 100 2/19/17 16:55 86 100 2/19/17 16:50 84 100 2/19/17 16:45 82 100 2/19/17 16:40 84 100 2/19/17 16:35 87 100 2/19/17 16:31 87 153/81 2/19/17 16:30 80 100 2/19/17 16:25 79 100 2/19/17 16:20 81 100 2/19/17 16:15 81 100 2/19/17 16:10 85 100 2/19/17 16:05 81 100 2/19/17 16:01 81 146/81 2/19/17 16:00 85 100 2/19/17 15:55 80 100 2/19/17 15:50 84 100 2/19/17 15:45 90 100 2/19/17 15:40 84 100 2/19/17 15:35 86 100 2/19/17 15:31 83 148/77 2/19/17 15:30 85 100 2/19/17 15:25 82 100 2/19/17 15:20 84 100 2/19/17 15:15 84 100 2/19/17 15:05 82 100 2/19/17 15:01 82 2/19/17 15:01 160/86 2/19/17 15:00 99 2/19/17 15:00 81 2/19/17 14:55 82 2/19/17 14:55 100 2/19/17 14:50 99 2/19/17 14:50 81 2/19/17 14:46 83 151/79 2/19/17 14:45 83 99 2/19/17 14:40 79 100 2/19/17 14:31 82 155/87 2/19/17 14:16 82 159/95 2/19/17 14:03 18 2/19/17 14:01 83 157/82 2/19/17 14:00 98.5 04/10/16 13:46 83 165/83 04/10/16 13:31 87 162/87 04/10/16 13:16 85 162/97 04/10/16 13:05 83 100 04/10/16 13:01 85 159/90 04/10/16 13:00 83 100 04/10/16 12:59 74 147/115 04/10/16 12:22 84 187/85 100 Nasal Cannula 2 04/10/16 12:20 88 18 185/85 98 Nasal Cannula 2 04/10/16 11:50 80 20 232/93 98 Nasal Cannula 2 04/10/16 11:45 82 22 232/98 Room Air Objective Remarks GENERAL: No acute distress. CARDIOVASCULAR: Systolic ejection flow murmur, regular rate and rhythm RESPIRATORY: Breath sounds equal bilaterally. No accessory muscle use. ABDOMEN/GI: Abdomen soft, non-tender. Fundus: Firm, non-tender at umbilicus. GENITOURINARY: Light to moderate bleeding. EXTREMITIES: No cyanosis or edema, non-tender, without signs of DVT. DTR's intact. Medications and IVs Current Medications Medications (Trade) Dose Ordered Sig/Chai Route Start Time Stop Time Status Last Admin Lactated Ringer's 1,000 ml @ 75 mls/hr [id number] IV 04/10/16 12:51 04/10/16 13:30 (Magnesium Sulfate 40 Gm Premix) 1,000 ml @ 50 mls/hr Q20H IV 04/10/16 12:51 04/11/16 08:21 (Calcium Gluconate Inj) 1 gm UNSCH PRN IV PUSH 04/10/16 13:00 (Zofran Inj) 4 mg Q6H PRN IV 04/10/16 13:00 (Colace) 100 mg BID PRN PO 04/10/16 13:00 (NS Flush) 2 ml BID IV 04/10/16 21:00 (NS Flush) 2 ml UNSCH PRN IV 04/10/16 13:15 (Mycostatin Cream) 1 applic Q12HR TOPICAL 04/10/16 13:45 04/11/16 08:22 (Chad Murillo MD R2) Objective Remarks upper extremity DTR +1 LE edema, SCDs adjusted ABD NT Uterus firm, lochia scant (Una Juares MD) Assessment/Plan Assessment and Plan IUFD, PPD 1, pre-eclampsia - Monitor liver enzymes, hemoglobin/hematocrit, platelets. - Monitor blood pressures, currently well controlled without medication. - Monitor DTR's while on magnesium sulfate, plan to stop magnesium at around noon. - Monitor vaginal bleeding. - Counseling and support with regards to losing baby. (Chad Murillo MD R2) Attending Attestation PPD #1 s/p IUFD Unknown at about 30 weeks by weight. Bereavement protocol. Placenta to pathology Cultures pending HELLP syndrome improved plts last evening LFT mildly elevated Morphine for MERCADO Magnesium sulfate until 24 hours PP Repeat labs this am (Una Juares MD) Chad Murillo MD R2 Apr 11, 2016 09:21 Una Juares MD Apr 11, 2016 09:37
[2016-04-11] MEDS ORDERED: MORPHINE SULFATE 4 MG/ML INJ IV PUSH ONE (09:30)
[2016-04-11 10:04] LABS: RAPID PLASMA REAGIN SCREEN NON-REACTIVE (NON-REACTVE)
[2016-04-11 10:58] LABS: AUTOMATED NEUTROPHIL # 5.6 TH/MM3 (1.8-7.7); BASOPHIL % 0.5 % (0.0-2.0); EOSINOPHIL % 0.2 % (0.0-4.0); HEMATOCRIT 32.2 % (35.0-46.0); HEMO FLAGS DIFF FINAL; LYMPH % 19.2 % (9.0-44.0); LYMPHOCYTE # 1.5 TH/MM3 (1.0-4.8); MEAN CELL VOLUME 109.8 FL (80.0-100.0); MEAN CORPUSCULAR HEMOGLOBIN 36.3 PG (27.0-34.0); MEAN CORPUSCULAR HGB CONC 33.1 % (32.0-36.0); MONO % 7.7 % (0.0-8.0); NEUT % 72.4 % (16.0-70.0); PLATELET COUNT 188 TH/MM3 (150-450); RED BLOOD COUNT 2.93 MIL/MM3 (4.00-5.30); RED CELL DISTRIBUTION WIDTH 20.4 % (11.6-17.2); WHITE BLOOD COUNT 7.7 TH/MM3 (4.0-11.0)
[2016-04-11 11:21] LABS: ALT (GPT) 34 U/L (10-53); ANION GAP 8 MEQ/L (5-15); AST (GOT) 42 U/L (15-37); BICARBONATE 29.2 MEQ/L (21.0-32.0); BLOOD UREA NITROGEN 6 MG/DL (7-18); CHLORIDE 102 MEQ/L (98-107); GLOMERULAR FILTRATION RATE 153 ML/MIN (>89); POTASSIUM 3.8 MEQ/L (3.5-5.1); SODIUM (NA) 139 MEQ/L (136-145)
[2016-04-11 11:23] LABS: ALKALINE PHOSPHATASE 136 U/L (45-117); TOTAL BILIRUBIN ADULT 0.7 MG/DL (0.2-1.0)
[2016-04-11] MEDS: ACETAMINOPHEN 325 MG TAB PO PRN (17:00)
[2016-04-11] MEDS ORDERED: ZOLPIDEM TARTRATE 10 MG TAB PO PRN ×2 (23:30)
[2016-04-12] MEDS ORDERED: oxyCODONE/ACETAMINOPHEN 5 MG/325 MG TAB PO PRN (05:30)
[2016-04-12] MEDS ORDERED: oxyCODONE/ACETAMINOPHEN 10 MG/325 MG TAB PO PRN (05:30)
[2016-04-12] MEDS ORDERED: DOCU1CAP39 PO (07:25)
[2016-04-12] MEDS ORDERED: OXYC1TAB36 PO (07:25)
[2016-04-12] MEDS ORDERED: ACET325T PO (07:25)
--- NOTE | 2016-04-12 07:26 | HHI.DCPOC ---
Discharge Care Plan Diagnosis: (1) HELLP (hemolytic anemia/elev liver enzymes/low platelets in ) (2) Intrauterine in (3) Preeclampsia Goals to Promote Your Health * To prevent worsening of your condition and complications * To maintain your health at the optimal level Directions to Meet Your Goals Take your medications as prescribed Follow your dietary instruction Follow activity as directed Keep your appointments as scheduled Take your immunizations and boosters as scheduled If your symptoms worsen call your PCP, if no PCP go to Urgent Care Center or Emergency Room Smoking is Dangerous to Your Health. Avoid second hand smoke Call the 24-hour hour crisis hotline for domestic abuse at Chad Murillo MD R2 Apr 12, 2016 07:26
--- NOTE | 2016-04-12 07:29 | HHI.OB ---
Subjective Post Day: 2 Remarks 40 year old post- day #2 after spontaneous vaginal delivery of a non- viable fetus, also with pre-eclampsia and possible HELLP syndrome. Blood pressures now well controlled and on magnesium sulfate since yesterday afternoon. She had a headache overnight relieved with sleep. She reports that she has no headache this morning. She does report some vaginal bleeding overnight which has since resolved. besides the headache she feels fine. She has minimal lochia. She denies blurry vision, N/V, abdominal pain. Tolerating diet. Objective Vitals/I&O BP 160/80, repeat BP 149/85, afebrile, pulse 92 Objective Remarks Patient is obese female in NAD upper extremity DTR 2+ LE edema 1+ Bilaterally Abd nontender Uterus firm, lochia scant Medications and IVs Current Medications Medications (Trade) Dose Ordered Sig/Chai Route Start Time Stop Time Status Last Admin (Magnesium Sulfate 40 Gm Premix) 1,000 ml @ 50 mls/hr Q20H IV 04/10/16 12:51 04/11/16 08:21 (Calcium Gluconate Inj) 1 gm UNSCH PRN IV PUSH 04/10/16 13:00 (Zofran Inj) 4 mg Q6H PRN IV 04/10/16 13:00 (Colace) 100 mg BID PRN PO 04/10/16 13:00 (NS Flush) 2 ml BID IV 04/10/16 21:00 (NS Flush) 2 ml UNSCH PRN IV 04/10/16 13:15 (Mycostatin Cream) 1 applic Q12HR TOPICAL 04/10/16 13:45 04/11/16 08:22 (Tylenol) 650 mg Q4H PRN PO 04/11/16 11:45 04/11/16 17:00 (Ambien) 10 mg HS PRN PO 04/11/16 23:30 04/11/16 23:36 (Percocet 5-325 Mg) 1 tab Q4H PRN PO 04/12/16 05:30 (Percocet 10-325 Mg) 1 tab Q4H PRN PO 04/12/16 05:30 04/12/16 05:25 Assessment/Plan Problem List: (1) Pre-eclampsia Assessment and Plan IUFD, PPD 2, pre-eclampsia. BPs stable at this time. Patient counseled to return to ED for symptoms and if BP at home is >160/90. Patient will follow up with PCP on Monday at 1130 (Domi Pang NP) PPD #2 s/p IUFD Unknown at about 30 weeks by weight. Bereavement protocol. Placenta to pathology Cultures pending HELLP syndrome improved plts last evening LFT mildly elevated Morphine for MERCADO Magnesium sulfate until 24 hours PP Discharge Planning Discharge today with close follow up. She is scheduled to see Domi Butler on Monday at 1130am. Aye Aragon MD R1 Apr 12, 2016 07:29
[2016-04-12 08:00] VITALS: TEMP 98.8
[2016-04-12] MEDS ORDERED: MEASLES, MUMPS, RUBELLA VACCINE 0.5 ML VIAL SQ ONE (08:33)
[2016-04-12 08:40] VITALS: BP 156/83; PULSE 91
[2016-04-12] MEDS: ACETAMINOPHEN 325 MG TAB PO PRN (09:50)
[2016-04-14 11:46] LABS: BATH SALTS (MDPV) UR NEG (NEG); ECSTASY (MDMA) UR NEG (NEG); HEROIN (6-ACETYLMORPHINE) UR NEG (NEG); K2 SPICE UR NEG (NEG); OBMETHADONE UR NEG (NEG); OXYCODONE (PERCODAN) NEG (NEG); PHENCYCLIDINE URINE NEG (NEG)
[2016-04-15] MEDS ORDERED: CLON.1 PO (12:13)
[2016-04-15] MEDS ORDERED: HYDR12.57 PO (12:37)
[2016-04-15] MEDS ORDERED: LOSA50TA PO (12:37)
[2016-04-21] MEDS ORDERED: NIFE30TA61 PO (09:41)
[2016-05-10] MEDS ORDERED: OMEP40CA2 PO (08:02)
[2016-05-16] MEDS ORDERED: NIFE30TA61 PO (14:44)
[2016-06-02] MEDS ORDERED: AMOX500C PO (13:32)
[2016-06-02] MEDS ORDERED: SULF400T PO (13:32)
[2016-06-13] MEDS ORDERED: NIFE30TA61 PO (08:24)
[2016-06-22] MEDS ORDERED: ZOLO25TA PO (15:01)
[2016-07-01] MEDS ORDERED: GABA600T PO (08:09)
[2016-07-06] MEDS ORDERED: TRAZ50TA12 PO (13:45)
[2016-07-26] MEDS ORDERED: NIFE30TA61 PO (10:55)
[2016-08-01] MEDS ORDERED: ACET325C (14:49)
== END 2016-04-12 10:00 | disposition home or self-care (01) | DRG 779 ==
LOC: NEPE 08:12 → H2EB 12:44
PROVIDERS: ADMIT Obstetrics & Gynecology; ATTEND Obstetrics & Gynecology
PROC: 10E0XZZ Delivery of Products of Conception, External Approach (ICD-10-PCS; principal; 2016-04-10)
DX: O03.9 Complete or unspecified spontaneous abortion without complication (principal); O14.22 HELLP syndrome (HELLP), second trimester; E66.9 Obesity, unspecified; O99.844 Bariatric surgery status complicating childbirth; O09.522 Supervision of elderly multigravida, second trimester; Z3A.25 25 weeks gestation of pregnancy; Z37.1 Single stillbirth
CPT/HCPCS: 51702; 70450; 80053; 80074; 80307; 81001; 84550; 85025; 85027; 85610; 86403; 86592; 86703; 86762; 86850; 86900; 86901; 87070; 87205; 87491; 87591; 88305; 88307; 90707; 96365; 96372; 96375; G0481; J0360; J1885; J2270; J2590; J3475; J7120

== ENCOUNTER 2016-04-15 23:19 | Inpatient (IN) | payer MEDICAID ==
[~2016-04-15] VITALS: Ht 165.1 cm; Wt 112.0 kg
[~2016-04-15 23:19] MED LIST changes: +ACET325T PO; +CLON.1 PO; -CYANCRY IM; +DOCU1CAP39 PO; +HYDR12.57 PO; +LOSA50TA PO; -MEDR10TA7 PO; +OXYC1TAB36 PO
[2016-04-15 23:21] VITALS: BP 203/117; PULSE 82; RESP 18; TEMP 98.1; O2SAT 99
[2016-04-16] VITALS (39 sets, daily range): BP systolic 105–180; BP diastolic 53–105; PULSE 69–97; RESP 16–22; TEMP 98.1–98.2; O2SAT 97–100
[2016-04-16] MEDS ORDERED: SODIUM CHLORIDE 0.9% FLUSH 5 ML FLUSH IVF PRN ×2 (01:00→02:30)
[2016-04-16] MEDS ORDERED: LABETALOL HCL 100 MG/20 ML VIAL IV PUSH ONE ×2 (01:00→04:15)
[2016-04-16 01:37] LABS: AUTOMATED NEUTROPHIL # 3.3 TH/MM3 (1.8-7.7); BASOPHIL % 0.7 % (0.0-2.0); EOSINOPHIL % 0.8 % (0.0-4.0); HEMATOCRIT 35.2 % (35.0-46.0); HEMO FLAGS DIFF FINAL; LYMPH % 26.7 % (9.0-44.0); LYMPHOCYTE # 1.4 TH/MM3 (1.0-4.8); MEAN CELL VOLUME 108.2 FL (80.0-100.0); MEAN CORPUSCULAR HEMOGLOBIN 35.7 PG (27.0-34.0); NEUT % 64.8 % (16.0-70.0); PLATELET COUNT 502 TH/MM3 (150-450); RED BLOOD COUNT 3.25 MIL/MM3 (4.00-5.30); RED CELL DISTRIBUTION WIDTH 19.5 % (11.6-17.2); WHITE BLOOD COUNT 5.1 TH/MM3 (4.0-11.0)
[2016-04-16 01:42] LABS: BLOOD, URINE MOD (NEG); COMMENT (UR) CULTURE INDICATED; CULTURE IF INDICATED CULTURE INDICATED; GLUCOSE,URINE NEG (NEG); HYALINE CAST, URINE 1 /lpf (RARE); KETONE, URINE TRACE mg/dL (NEG); MUCUS URINE FEW /lpf (OCC); NITRITE,URINE NEG (NEG); PH, URINE 6.5 (5.0-8.5); SQUAMOUS EPITHELIAL CELL URINE 2 /hpf (0-5); URINE COLOR YELLOW (YELLW/STRAW)
[2016-04-16 01:55] LABS: ALKALINE PHOSPHATASE 135 U/L (45-117); TOTAL BILIRUBIN ADULT 0.6 MG/DL (0.2-1.0)
[2016-04-16 02:15] LABS: ALT (GPT) 24 U/L (10-53); ANION GAP 9 MEQ/L (5-15); AST (GOT) 29 U/L (15-37); BICARBONATE 30.3 MEQ/L (21.0-32.0); BLOOD UREA NITROGEN 5 MG/DL (7-18); CHLORIDE 103 MEQ/L (98-107); GLOMERULAR FILTRATION RATE 117 ML/MIN (>89); POTASSIUM 3.4 MEQ/L (3.5-5.1); SODIUM (NA) 142 MEQ/L (136-145)
[2016-04-16] MEDS ORDERED: LACTATED RINGER'S 1000 ML INJ 1,000 ML IV SCH (02:23)
[2016-04-16] MEDS ORDERED: MAGNESIUM SULFATE 40 GM PREMIX 1,000 ML IV SCH (02:23)
[2016-04-16] MEDS ORDERED: MAGNESIUM SULFATE 4 GM PREMIX 100 ML IV ONE (02:30)
[2016-04-16] MEDS ORDERED: CALCIUM GLUCONATE 10% 1 GM/10 ML VIAL IV PUSH PRN ×2 (02:30→05:15)
--- NOTE | 2016-04-16 02:34 | PD ---
HPI Chief Complaint: Hypertension Time Seen by Provider: 00:44 Travel History International Travel<30 days: No Contact w/Intl Traveler<30days: No Traveled to known affect area: No History of Present Illness HPI 40-year-old female presents to the emergency department for evaluation of high blood pressure. Patient states she underwent admission 04/10/16 for demise and elevated blood pressure on review of medical records she was admitted with preeclampsia affecting with demise placed on magnesium bolus magnesium infusion and antihypertensive medications and was discharged 04/12/16. Patient was seen in the office for follow-up visit 04/15/16 was noted to be markedly hypertensive and was encouraged to come directly to the emergency department at 1 PM. Patient states she did not feel like coming to the hospital so fill her prescription for pain medication but due to feeling that perhaps her blood pressure still elevated decided to come to the emergency room where was noted to be markedly elevated. Patient has no headache no visual disturbance no nausea no vomiting no balance disturbance no chest pain no shortness of breath does have bilateral lower extremity edema which she reports is improved from her admission 04/10/16. Patient denies other concerns or complaints. Patient rates pain 0/10 intensity. Patient's had no abnormal vaginal discharge or vaginal bleeding or pelvic pain. PFSH Past Medical History Narrative Medical Hypertension preeclampsia help syndrome morbid obesity 2 bariatric sleeve Ab1 no tobacco use nursing notes reviewed Cancer: No Cardiovascular Problems: Yes (HTN) Diabetes: No Diminished Hearing: No Gastrointestinal Disorders: Yes (GERD PRN) GERD: Yes (takes meds) Genitourinary: No Hepatitis: No Hiatal Hernia: No Hypertension: Yes (not diagnosed was supposed to come fri for htn did not) Musculoskeletal: Yes (BACK PAIN) Psychiatric: No Reproductive: No Respiratory: No Thyroid Disease: No Tetanus Vaccination: > 5 Years Influenza Vaccination: No ?: Not : 3 Para: 2 : 1 Past Surgical History Abdominal Surgery: Yes (2 C SEC) AICD: No Section: Yes (X2) Cholecystectomy: Yes Gynecologic Surgery: Yes (C SEC X 2) Joint Replacement: No Pacemaker: No Other Surgery: Yes (BARIATRIC SLEEVE) Social History Alcohol Use: No Tobacco Use: No Substance Use: No Allergies-Medications (Allergen,Severity, Reaction): Coded Allergies: Nonsteroidal Anti-Inflammatory Agts (Verified Allergy, Unknown, 04/15/16) PT TOLD NOT TO TAKE THIS AFTER HER BARIATRIC SURGERY Reported Meds & Prescriptions Reported Meds & Active Scripts Active Hydrochlorothiazide 12.5 Mg Cap 12.5 Mg PO DAILY Losartan (Losartan Potassium) 50 Mg Tab 50 Mg PO DAILY Dok (Docusate Sodium) 100 Mg Cap 100 Mg PO BID PRN Acetaminophen 325 Mg Tab 650 Mg PO Q4H PRN Gabapentin 600 Mg Tab 600 Mg PO HS Potassium Chloride Liq (Potassium Chloride) 20 Meq/15 Ml Soln 20 Meq PO BID Vitamin D (Cholecalciferol) 2,000 Unit Cap 1 Cap PO DAILY Vitamin D3 (Cholecalciferol) 50,000 Unit Cap 50,000 Units PO Q7D Reported Lortab (Hydrocodone-Acetaminophen) 10-325 Mg Tab 1 Tab PO Q4H PRN Omeprazole 40 Mg Cap 40 Mg PO DAILY Review of Systems Except as stated in HPI: all other systems reviewed are Neg General / Constitutional: No: Fever Eyes: No: Diploplia, Blurred Vision HENT: No: Headaches, Vertigo Cardiovascular: No: Chest Pain or Discomfort Respiratory: No: Shortness of Breath Gastrointestinal: No: Nausea, Vomiting, Abdominal Pain Genitourinary: No: Dysuria, Pelvic Pain, Discharge, Vaginal Bleeding Musculoskeletal: Positive: Edema ("this is better"), No: Myalgias, Arthralgias , Pain Skin: No Rash Neurologic: No: Weakness, Dizziness, Syncope Psychiatric: No: Anxiety Endocrine: No: Polyuria Hematologic/Lymphatic: No: Easy Bruising (bruise to RLE secondary to contusion from work 1 week ago) Physical Exam Narrative GENERAL: Well-developed well-nourished female in no acute distress no respiratory distress GCS 15 SKIN: Warm and dry. HEAD: Atraumatic. Normocephalic. EYES: Pupils equal and round. No scleral icterus. No injection or drainage. No papilledema by funduscopic exam ENT: No nasal bleeding or discharge. Mucous membranes pink and moist. NECK: Trachea midline. No JVD. CARDIOVASCULAR: Regular rate and rhythm. RESPIRATORY: No accessory muscle use. Clear to auscultation. Breath sounds equal bilaterally. GASTROINTESTINAL: Abdomen soft, non-tender, nondistended. Hepatic and splenic margins not palpable. MUSCULOSKELETAL: Extremities without clubbing, cyanosis, bilateral lower leg edema. No obvious deformities. NEUROLOGICAL: Awake and alert. No obvious cranial nerve deficits. Motor grossly within normal limits. Five out of 5 muscle strength in the arms and legs. Normal speech. PSYCHIATRIC: Appropriate mood and affect; insight and judgment normal. Data Data Last Documented VS Vital Signs Date Time Temp Pulse Resp B/P Pulse Ox O2 Delivery O2 Flow Rate FiO2 04/16/16 02:22 154/88 04/16/16 01:57 70 18 97 04/16/16 01:45 Room Air 04/15/16 23:21 98.1 Orders Complete Blood Count With Diff (04/16/16 00:49) Comprehensive Metabolic Panel (04/16/16 00:49) Urinalysis - C+S If Indicated (04/16/16 00:49) Iv Access Insert/Monitor (04/16/16 00:49) Ecg Monitoring (04/16/16 00:49) Sodium Chloride 0.9% Flush (Ns Flush) (04/16/16 01:00) Labetalol Inj (Trandate Inj) (04/16/16 01:00) Urine Culture (04/16/16 01:10) ^ Check Deep Tendon Reflexes Q1H (04/16/16 02:23) Lactated Ringer's 1000 Ml Inj (Lr 1000 M (04/16/16 02:23) Magnesium Sulfate 40 Gm Premix (Magnesiu (04/16/16 02:23) Calcium Gluconate Inj (Calcium Gluconate (04/16/16 02:30) Magnesium Sulfate 4 Gm Premix (Magnesium (04/16/16 02:30) Admit Order (Ed Use Only) (04/16/16 ) Activity Bed Rest (04/16/16 02:26) ^ Saline Lock (04/16/16 02:26) Resp Oxygen Christian C Titrat 1-4 L (04/16/16 ) ^ Notify Dr: Other (04/16/16 02:26) Sodium Chloride 0.9% Flush (Ns Flush) (04/16/16 09:00) Sodium Chloride 0.9% Flush (Ns Flush) (04/16/16 02:30) Labs Laboratory Tests Test 04/16/16 04/16/16 01:00 01:10 White Blood Count 5.1 TH/MM3 Red Blood Count 3.25 MIL/MM3 Hemoglobin 11.6 GM/DL Hematocrit 35.2 % Mean Corpuscular Volume 108.2 FL Mean Corpuscular Hemoglobin 35.7 PG Mean Corpuscular Hemoglobin 33.0 % Concent Red Cell Distribution Width 19.5 % Platelet Count 502 TH/MM3 Mean Platelet Volume 8.8 FL Neutrophils (%) (Auto) 64.8 % Lymphocytes (%) (Auto) 26.7 % Monocytes (%) (Auto) 7.0 % Eosinophils (%) (Auto) 0.8 % Basophils (%) (Auto) 0.7 % Neutrophils # (Auto) 3.3 TH/MM3 Lymphocytes # (Auto) 1.4 TH/MM3 Monocytes # (Auto) 0.4 TH/MM3 Eosinophils # (Auto) 0.0 TH/MM3 Basophils # (Auto) 0.0 TH/MM3 CBC Comment DIFF FINAL Differential Comment Sodium Level 142 MEQ/L Potassium Level 3.4 MEQ/L Chloride Level 103 MEQ/L Carbon Dioxide Level 30.3 MEQ/L Anion Gap 9 MEQ/L Blood Urea Nitrogen 5 MG/DL Creatinine 0.68 MG/DL Estimat Glomerular Filtration 117 ML/MIN Rate Random Glucose 79 MG/DL Calcium Level 9.2 MG/DL Total Bilirubin 0.6 MG/DL Aspartate Amino Transf 29 U/L (AST/SGOT) Alanine Aminotransferase 24 U/L (ALT/SGPT) Alkaline Phosphatase 135 U/L Total Protein 7.3 GM/DL Albumin 3.1 GM/DL Urine Color YELLOW Urine Turbidity HAZY Urine pH 6.5 Urine Specific [place] 1.018 Urine Protein 300 mg/dL Urine Glucose (UA) NEG mg/dL Urine Ketones TRACE mg/dL Urine Occult Blood MOD Urine Nitrite NEG Urine Bilirubin NEG Urine Urobilinogen 2.0 MG/DL Urine Leukocyte Esterase MOD Urine RBC 5 /hpf Urine WBC 80 /hpf Urine WBC Clumps FEW Urine Squamous Epithelial 2 /hpf Cells Urine Hyaline Casts 1 /lpf Urine Mucus FEW /lpf Microscopic Urinalysis Comment CULTURE INDICATED MDM Medical Decision Making Medical Screen Exam Complete: Yes Emergency Medical Condition: Yes Medical Record Reviewed: Yes Interpretation(s) Vital Signs Date Time Temp Pulse Resp B/P Pulse Ox O2 Delivery O2 Flow Rate FiO2 04/16/16 02:22 154/88 04/16/16 01:57 70 18 156/94 97 04/16/16 01:45 72 18 166/101 98 Room Air 04/16/16 01:27 73 16 164/97 99 Room Air 04/16/16 01:24 69 18 180/105 98 Room Air 04/16/16 00:39 72 18 173/96 100 Room Air 04/15/16 23:21 98.1 82 18 203/117 99 CBC & BMP Diagram 04/16/16 01:00 Urinalysis: Positive for protein area Chemistries: LFTs within normal range except for mild elevation of alkaline phosphatase Differential Diagnosis Preeclampsia eclampsia hypertension hellp Narrative Course Patient placed on cardiac rehab nurse IV access obtained patient administered labetalol 20 mg IV LFTs within normal limits urinalysis positive for protein Patient's case discussed with on-call [employer] Dr. Church request patient be admitted to her service and initiate magnesium with bolus Patient placed on magnesium with bolus and infusion also additional labetalol ordered for blood pressure management CBC platelets mildly elevated no thrombocytopenia, metabolic panel values grossly within normal range LFTs values are normal range except for mild elevation of alkaline phosphatase, urinalysis remarkable for proteinuria Patient aware of plan for admission for ongoing issues with hypertension and a post preeclampsia Critical Care Narrative Aggregate critical care time was 40 minutes. Time to perform other separately billable procedures was not included in the critical care time. My time did not include minutes spent treating any other patients simultaneously or on activities that did not directly contribute to the patient's treatment. The services I provided to this patient were to treat and/or prevent clinically significant deterioration that could result in: seizure, intracranial bleed, I provided critical care services requiring my management, as noted below: Chart data review, documentation time, medication orders and management, vital sign assessments/reviewing monitor data, ordering and reviewing lab tests, ordering and interpreting/reviewing x-rays and diagnostic studies, care of the patient and discussion of the patient with the admitting physicians. Physician Communication Physician Communication discussed with Dr Church --admit to her service Diagnosis Primary Impression: Pre-eclampsia Qualified Code: O14.90 - Pre-eclampsia, unspecified trimester Additional Impression: Hypertension Qualified Code: I15.9 - Secondary hypertension Admitting Information Admitting Physician Requests: Admit Jacinta Bashir MD Apr 16, 2016 02:34
[2016-04-16] MEDS: MAGNESIUM SULFATE 40 GM PREMIX 1,000 ML IV SCH ×2 (05:05→21:28)
[2016-04-16] MEDS: LACTATED RINGER'S 1000 ML INJ 1,000 ML IV SCH ×2 (05:05→15:55)
[2016-04-16] MEDS ORDERED: SODIUM CHLORIDE 0.9% FLUSH 5 ML FLUSH IV PRN (05:15)
[2016-04-16] MEDS: NIFEdipine 10 MG CAP PO SCH ×3 (05:15→21:28)
[2016-04-16] MEDS ORDERED: ZOLPIDEM TARTRATE 5 MG TAB PO PRN (05:15)
[2016-04-16] MEDS ORDERED: ONDANSETRON HCL 4 MG/2 ML VIAL IV PRN (05:15)
--- NOTE | 2016-04-16 05:18 | PD ---
HPI Chief Complaint Patient is feeling poorly with continued edema Date Seen: Apr 16, 2016 Time Seen: 05:11 Travel History International Travel<30 Days: No Contact w/Intl Traveler<30Days: No Known Affected Area: No History of Present Illness HPI Patient is a 40-year-old female she is a who was admitted on April 10 with an undiagnosed . She had HELLP syndrome and delivered a demise down in the emergency department. Patient had been admitted previously in February due to profuse lymphedema and hypokalemia she is treated for the above but had not had any test done. Patient does not have cyclic menses ever since undergoing her gastric sleeve bypass and thereafter going on Depo-Provera. Patient denies headache at this time and states the edema is significantly improved. She was seen in her primary provider's office today had a very high blood pressure she states to 205/105 and was given clonidine in the office and sent to the emergency department. Patient did not get to the emergency department until almost 12 hours later. Patient has minimal vaginal bleeding no abdominal or pelvic pain. She is still quite upset about her undiagnosed and the fact that she had a demise. She denies any history of chronic hypertension prior to the Para: 3 : 3 History Past Medical History Medical History: Denies Significant Hx Obstetric History Obstetric History section 2 Past Surgical History Narrative Surgical Bariatric sleeve surgery section 2 Cholecystectomy Family History Family History: Negative Social History Alcohol Use: No Tobacco Use: No Substance Abuse: No Allergies-Medications (Allergen,Severity, Reaction): Coded Allergies: Nonsteroidal Anti-Inflammatory Agts (Verified Allergy, Unknown, 04/15/16) PT TOLD NOT TO TAKE THIS AFTER HER BARIATRIC SURGERY Home Meds Active Scripts Hydrochlorothiazide 12.5 Mg Cap12.5 Mg PO DAILY #30 CAP Ref 0 Prov:Domi CohenP 04/15/16 Losartan 50 Mg Tab50 Mg PO DAILY #30 TAB Ref 0 Prov:Domi Cohen 04/15/16 Docusate Sodium (Dok)100 Mg Neg730 Mg PO BID PRN (CONSTIPATION) #30 CAP Prov:Chad Murillo MD R2 04/12/16 Acetaminophen 325 Mg Nmp300 Mg PO Q4H PRN (headache) #30 TAB Prov:Chad Murillo MD R2 04/12/16 Gabapentin 600 Mg Fcn161 Mg PO HS #90 TAB Ref 0 Prov:Gaby Schuler [employer]CH[employer]ICIAN 04/04/16 Potassium Chloride Liq 20 Meq/15 Ml Soln20 Meq PO BID #900 ML Ref 3 Prov:Domi Cohen [employer]CH[employer] 03/23/16 Cholecalciferol (Vitamin D)2,000 Unit Cap1 Cap PO DAILY #90 CAP Ref 1 Prov:Domi Cohen [employer]IAN 01/13/16 Cholecalciferol (Vitamin D3)50,000 Unit Cap50,000 Units PO Q7D #10 BOTTLE Ref 0 Prov:Domi Cohen [employer]CH[employer]ICIAN 01/13/16 Reported Medications Hydrocodone-Acetaminophen (Lortab)10-325 Mg Tab1 Tab PO Q4H PRN (PAIN) Ref 0 01/13/16 Omeprazole 40 Mg Cap40 Mg PO DAILY #30 CAP Ref 0 01/13/16 Discontinued Reported Medications Cyanocobalamin 1 Cry Cry1,000 Mcg IM q30 day 01/13/16 Discontinued Scripts Oxycodone-Acetaminophen 10-325 mg Tab1 Tab PO Q4H PRN (PAIN 6-10) #30 TAB Prov:Chad Murillo MD R2 04/12/16 Review of Systems Except as stated in HPI: all other systems reviewed are Neg Physical Exam Vital Signs Date Time Temp Pulse Resp B/P Pulse Ox O2 Delivery O2 Flow Rate FiO2 04/16/16 04:02 74 18 151/82 98 Room Air 04/16/16 03:02 75 18 162/96 98 Room Air 04/16/16 02:22 154/88 04/16/16 01:57 70 18 156/94 97 04/16/16 01:45 72 18 166/101 98 Room Air 04/16/16 01:27 73 16 164/97 99 Room Air 04/16/16 01:24 69 18 180/105 98 Room Air 04/16/16 00:39 72 18 173/96 100 Room Air 04/15/16 23:21 98.1 82 18 203/117 99 Narrative GENERAL: Well-nourished, well-developed patient. SKIN: Warm and dry. HEAD: Normocephalic and atraumatic. EYES: No scleral icterus. No injection or drainage. ENT: No nasal drainage noted. Mucous membranes pink. Airway patent. NECK: Supple, trachea midline. No JVD. CARDIOVASCULAR: Regular rate and rhythm without murmurs, gallops, or rubs. RESPIRATORY: Breath sounds equal bilaterally. No accessory muscle use. BREASTS: Bilateral exam showed no masses , no retractions, no nipple discharge. ABDOMEN/GI: Abdomen soft, non-tender, bowel sounds present, no rebound, no guarding Fundus is just above the pubic bone GENITOURINARY: External Genitalia: intact and normal in appearance BUS glands: [Normal-] mild lochia EXTREMITIES: No cyanosis. 2+ edema to mid thigh. BACK: Nontender without obvious deformity. No CVA tenderness. NEUROLOGICAL: Awake and alert. Motor and sensory grossly within normal limits. Five out of 5 muscle strength in all muscle groups. Normal speech. Data Data Orders Complete Blood Count With Diff (04/16/16 00:49) Comprehensive Metabolic Panel (04/16/16 00:49) Urinalysis - C+S If Indicated (04/16/16 00:49) Iv Access Insert/Monitor (04/16/16 00:49) Ecg Monitoring (04/16/16 00:49) Sodium Chloride 0.9% Flush (Ns Flush) (04/16/16 01:00) Labetalol Inj (Trandate Inj) (04/16/16 01:00) Urine Culture (04/16/16 01:10) ^ Check Deep Tendon Reflexes Q1H (04/16/16 02:23) Lactated Ringer's 1000 Ml Inj (Lr 1000 M (04/16/16 02:23) Magnesium Sulfate 40 Gm Premix (Magnesiu (04/16/16 02:23) Calcium Gluconate Inj (Calcium Gluconate (04/16/16 02:30) Magnesium Sulfate 4 Gm Premix (Magnesium (04/16/16 02:30) Admit Order (Ed Use Only) (04/16/16 ) Activity Bed Rest (04/16/16 02:26) ^ Saline Lock (04/16/16 02:26) Resp Oxygen Christian C Titrat 1-4 L (04/16/16 ) ^ Notify Dr: Other (04/16/16 02:26) Sodium Chloride 0.9% Flush (Ns Flush) (04/16/16 09:00) Sodium Chloride 0.9% Flush (Ns Flush) (04/16/16 02:30) Diet Npo (04/16/16 Breakfast) Vital Signs (Adult) SEBASTIEN.Q4H (04/16/16 03:59) ^ For Further Orders (04/16/16 03:59) Labetalol Inj (Trandate Inj) (04/16/16 04:15) Admit To Inpatient (04/16/16 ) Activity Bed Rest (04/16/16 05:05) Intake + Output Q1H (04/16/16 05:05) ^ Notify DrGina Parameters (04/16/16 05:05) ^ Check Deep Tendon Reflexes Q1H (04/16/16 05:05) Diet Liquid (04/16/16 Breakfast) Lactated Ringer's 1000 Ml Inj (Lr 1000 M (04/16/16 05:05) Labs Laboratory Tests Test 04/16/16 04/16/16 01:00 01:10 White Blood Count 5.1 Red Blood Count 3.25 Hemoglobin 11.6 Hematocrit 35.2 Mean Corpuscular Volume 108.2 Mean Corpuscular Hemoglobin 35.7 Mean Corpuscular Hemoglobin 33.0 Concent Red Cell Distribution Width 19.5 Platelet Count 502 Mean Platelet Volume 8.8 Neutrophils (%) (Auto) 64.8 Lymphocytes (%) (Auto) 26.7 Monocytes (%) (Auto) 7.0 Eosinophils (%) (Auto) 0.8 Basophils (%) (Auto) 0.7 Neutrophils # (Auto) 3.3 Lymphocytes # (Auto) 1.4 Monocytes # (Auto) 0.4 Eosinophils # (Auto) 0.0 Basophils # (Auto) 0.0 CBC Comment DIFF FINAL Differential Comment Sodium Level 142 Potassium Level 3.4 Chloride Level 103 Carbon Dioxide Level 30.3 Anion Gap 9 Blood Urea Nitrogen 5 Creatinine 0.68 Estimat Glomerular Filtration 117 Rate Random Glucose 79 Calcium Level 9.2 Total Bilirubin 0.6 Aspartate Amino Transf 29 (AST/SGOT) Alanine Aminotransferase 24 (ALT/SGPT) Alkaline Phosphatase 135 Total Protein 7.3 Albumin 3.1 Urine Color YELLOW Urine Turbidity HAZY Urine pH 6.5 Urine Specific [place] 1.018 Urine Protein 300 Urine Glucose (UA) NEG Urine Ketones TRACE Urine Occult Blood MOD Urine Nitrite NEG Urine Bilirubin NEG Urine Urobilinogen 2.0 Urine Leukocyte Esterase MOD Urine RBC 5 Urine WBC 80 Urine WBC Clumps FEW Urine Squamous Epithelial 2 Cells Urine Hyaline Casts 1 Urine Mucus FEW Microscopic Urinalysis Comment CULTURE INDICATED Date/Time Procedure Status Source Growth 04/16/16 01:10 Urine Culture Received Urine Clean Catch Pending MDM Plan Patient is with exacerbation of hypertension due to HELLP syndrome with admission on 04/10 and delivery of a demise. Labs have improved considerably. platelets are obviously back up to normal and liver function is back to normal. Patient is presently on magnesium sulfate that was initiated in the emergency department. She was given a total of 40 mg labetalol IV in the emergency department. I will initiate Procardia 10 mg orally 3 times a day for blood pressure control with additional IV control as necessary. Diagnosis Diagnosis: Primary Impression: Pre-eclampsia Qualified Code: O14.90 - Pre-eclampsia, unspecified trimester Additional Impressions: Hypertension Qualified Code: I15.9 - Secondary hypertension hypertension History of hemolysis, elevated liver enzymes, and low platelet (HELLP) syndrome History of demise, not currently Emma Church MD Apr 16, 2016 05:18
[2016-04-16] MEDS ORDERED: LABETALOL HCL 100 MG/20 ML VIAL IV PUSH PRN (06:15)
[2016-04-16] MEDS: ACETAMINOPHEN 325 MG TAB PO PRN ×3 (07:32→18:13)
--- NOTE | 2016-04-16 08:28 | HHI.PR ---
Subjective Remarks 40 year old admitted April 10 with undiagnosed . She had intrauterine demise and delivered in the emergency department. She subsequently developed HELLP syndrome. She is now presenting with preeclampsia post-. Her blood pressures on admission were 203/117. Now blood pressure is 130/71. She is receiving Procardia 10 mg q8hrs and magnesium sulfate. She has a headache from the magnesium sulfate, but no blurry vision, epigastric pain , or new swelling. Her deep tendon reflexes remain intact. She otherwise reports that she feels fine. Objective Vital Signs Date Time Temp Pulse Resp B/P Pulse Ox O2 Delivery O2 Flow Rate FiO2 04/16/16 07:13 98.2 04/16/16 07:13 96 18 130/71 04/16/16 06:02 117/63 04/16/16 05:15 98.1 79 18 173/87 04/16/16 04:02 74 18 151/82 98 Room Air 04/16/16 03:02 75 18 162/96 98 Room Air 04/16/16 02:22 154/88 04/16/16 01:57 70 18 156/94 97 04/16/16 01:45 72 18 166/101 98 Room Air 04/16/16 01:27 73 16 164/97 99 Room Air 04/16/16 01:24 69 18 180/105 98 Room Air 04/16/16 00:39 72 18 173/96 100 Room Air 04/15/16 23:21 98.1 82 18 203/117 99 I/O 04/15/16 04/15/16 04/15/16 04/16/16 04/16/16 04/16/16 07:00 15:00 23:00 07:00 15:00 23:00 Output Total 200 ml Balance -200 ml Output Urine Total 200 ml Result Diagram: 04/16/16 0100 04/16/16 0100 Objective Remarks GENERAL: No distress SKIN: Normal HEAD: Normocephalic and atraumatic. EYES: No scleral icterus. No injection or drainage. ENT: No nasal drainage noted. Mucous membranes pink. Airway patent. NECK: Supple, trachea midline. No JVD. CARDIOVASCULAR: Regular rate and rhythm without murmurs, gallops, or rubs. RESPIRATORY: Breath sounds equal bilaterally. No accessory muscle use. BREASTS: Bilateral exam showed no masses , no retractions, no nipple discharge. ABDOMEN/GI: Abdomen soft, non-tender, bowel sounds present, no rebound, no guarding Fundus is just above the pubic bone EXT: No significant edema NEURO: DTR's intact, no focal deficits Assessment and Plan Problem List: (1) Preeclampsia Status: Acute Plan: Previous HELLP syndrome after intrauterine demise followed by unexpected delivery. Hgb 11.6, platelets 502, AST/ALT 29/24. Now with preeclampsia, significantly elevated blood pressures on admission. - Procardia 10 mg q8hrs, monitor blood pressures and adjust as necessary. - Magnesium sulfate for seizure prophylaxis, monitor DTR's - Monitor for severe symptoms. - Regular vital sign and neuro checks. Discussed with Dr. Church Attestation Agree with management Blood presssures have improved greatly on Procardia 10mg po TID Will most likely need outpatient antihypertensive medication Chad Murillo MD R2 Apr 16, 2016 08:28 Emma Church MD Apr 16, 2016 09:26
[2016-04-16] MEDS: SODIUM CHLORIDE 0.9% FLUSH 5 ML FLUSH IV SCH ×2 (09:00→21:00)
[2016-04-16] MEDS ORDERED: SODIUM CHLORIDE 0.9% FLUSH 5 ML FLUSH IVF SCH (09:00)
[2016-04-16 11:10] LABS: ALKALINE PHOSPHATASE 122 U/L (45-117); ALT (GPT) 20 U/L (10-53); ANION GAP 10 MEQ/L (5-15); AST (GOT) 23 U/L (15-37); BICARBONATE 29.8 MEQ/L (21.0-32.0); BLOOD UREA NITROGEN 4 MG/DL (7-18); CHLORIDE 100 MEQ/L (98-107); GLOMERULAR FILTRATION RATE 184 ML/MIN (>89); SODIUM (NA) 140 MEQ/L (136-145); TOTAL BILIRUBIN ADULT 0.5 MG/DL (0.2-1.0)
[2016-04-16] MEDS ORDERED: SIMETHICONE 80 MG CHEWABLE TAB CHEW PRN (20:30)
[2016-04-17] VITALS (13 sets, daily range): BP systolic 111–148; BP diastolic 61–90; PULSE 18–88; RESP 18–19; TEMP 99.1–99.7
[2016-04-17] MEDS: NIFEdipine 10 MG CAP PO SCH (05:55)
[2016-04-17] MEDS ORDERED: DOCUSATE SODIUM 100 MG CAP PO SCH (09:15)
[2016-04-17] MEDS ORDERED: oxyCODONE/ACETAMINOPHEN 5 MG/325 MG TAB PO PRN (09:15)
--- NOTE | 2016-04-17 10:58 | HHI.PR ---
Subjective Remarks Mrs. Jesus has had improved blood pressures on Procardia TID; BP has ranged from 111/61- 153/81 in the past 24 hrs. Mrs. Jesus denies symptoms at this time ; no reported headache, vision changes, chest pain, shortness of breath, dysuria , or abnormal bowel movements. Patient requests discharge home today. Objective Vital Signs Date Time Temp Pulse Resp B/P Pulse Ox O2 Delivery O2 Flow Rate FiO2 04/17/16 09:00 99.7 18 04/17/16 08:59 85 132/71 04/17/16 05:54 88 18 148/86 04/17/16 04:05 84 134/76 04/17/16 04:00 19 04/17/16 03:06 86 140/81 04/17/16 03:00 18 04/17/16 02:01 83 132/72 04/17/16 01:41 18 04/17/16 01:01 81 128/63 04/17/16 01:00 18 18 04/17/16 00:01 84 111/61 04/16/16 23:03 18 04/16/16 23:01 87 115/67 04/16/16 23:00 18 04/16/16 22:04 90 118/74 04/16/16 22:00 22 04/16/16 22:00 90 118/74 04/16/16 21:00 75 18 136/78 04/16/16 20:30 18 04/16/16 20:01 81 132/64 04/16/16 19:30 18 04/16/16 19:01 85 137/73 04/16/16 18:14 16 04/16/16 18:05 84 137/80 04/16/16 17:00 18 04/16/16 16:57 87 04/16/16 16:57 131/69 04/16/16 16:04 84 131/78 04/16/16 16:00 18 04/16/16 15:00 18 04/16/16 15:00 84 117/65 04/16/16 14:01 97 105/53 04/16/16 14:00 18 04/16/16 13:00 18 04/16/16 13:00 88 18 153/81 04/16/16 12:00 83 18 146/85 04/16/16 11:08 84 136/77 04/16/16 11:00 18 I/O 04/16/16 04/16/16 04/16/16 04/17/16 04/17/16 04/17/16 07:00 15:00 23:00 07:00 15:00 23:00 Output Total 200 ml Balance -200 ml Output Urine Total 200 ml Result Diagram: 04/16/16 0100 04/16/16 0947 Objective Remarks GENERAL: No distress SKIN: Normal HEAD: Normocephalic and atraumatic. EYES: No scleral icterus. No injection or drainage. ENT: No nasal drainage noted. CARDIOVASCULAR: Regular rate and rhythm without murmurs RESPIRATORY: Clear to auscultation bilaterally; normal rate ABDOMEN/GI: Abdomen soft, non-tender, bowel sounds present, no rebound, no guarding. 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 Hgb 11.6, platelets 502, AST/ALT 29/24. Now with preeclampsia, significantly elevated blood pressures on admission. Reassuring physical exam. - Contiue Procardia 10 mg q8hrs, monitor blood pressures and adjust as necessary. -Plan for discharge home on Procardia and follow-up with PCP Discussed Condition With Patient seen and evaluated with resident under direct supervision, agree with assessment and plan. Valeriy Rodriguez MD R2 Apr 17, 2016 10:57 Lencho Hendrix MD Apr 23, 2016 12:03
[2016-04-17 11:47] LABS: HEMATOCRIT 34.5 % (35.0-46.0); MEAN CELL VOLUME 108.6 FL (80.0-100.0); MEAN CORPUSCULAR HEMOGLOBIN 35.7 PG (27.0-34.0); MEAN CORPUSCULAR HGB CONC 32.9 % (32.0-36.0); PLATELET COUNT 496 TH/MM3 (150-450); RED BLOOD COUNT 3.18 MIL/MM3 (4.00-5.30); RED CELL DISTRIBUTION WIDTH 18.4 % (11.6-17.2); REVIEW FLAG FINAL; WHITE BLOOD COUNT 5.5 TH/MM3 (4.0-11.0)
--- NOTE | 2016-04-17 11:54 | HHI.DCPOC ---
Discharge Care Plan Diagnosis: (1) Preeclampsia Goals to Promote Your Health * To prevent worsening of your condition and complications * To maintain your health at the optimal level Directions to Meet Your Goals Take your medications as prescribed Follow your dietary instruction Follow activity as directed Keep your appointments as scheduled Take your immunizations and boosters as scheduled If your symptoms worsen call your PCP, if no PCP go to Urgent Care Center or Emergency Room Smoking is Dangerous to Your Health. Avoid second hand smoke Call the 24-hour hour crisis hotline for domestic abuse at Valeriy Rodriguez MD R2 Apr 17, 2016 11:54
[2016-04-17] MEDS ORDERED: NIFE30TA61 PO (11:56)
[2016-04-21] MEDS ORDERED: NIFE30TA61 PO (09:41)
[2016-05-10] MEDS ORDERED: OMEP40CA2 PO (08:02)
[2016-05-16] MEDS ORDERED: NIFE30TA61 PO (14:44)
[2016-06-02] MEDS ORDERED: SULF400T PO (13:32)
[2016-06-02] MEDS ORDERED: AMOX500C PO (13:32)
[2016-06-13] MEDS ORDERED: NIFE30TA61 PO (08:24)
[2016-06-22] MEDS ORDERED: ZOLO25TA PO (15:01)
[2016-07-01] MEDS ORDERED: GABA600T PO (08:09)
[2016-07-06] MEDS ORDERED: TRAZ50TA12 PO (13:45)
[2016-07-26] MEDS ORDERED: NIFE30TA61 PO (10:55)
[2016-08-01] MEDS ORDERED: ACET325C (14:49)
== END 2016-04-17 12:23 | disposition home or self-care (01) | DRG 776 ==
LOC: NEPC 23:51 → NEDA 04-16 02:29 → H2EA 04-16 04:43
PROVIDERS: ADMIT Obstetrics & Gynecology Obstetrics; ATTEND Obstetrics & Gynecology Obstetrics
DX: O14.95 Unspecified pre-eclampsia, complicating the puerperium (principal); I15.9 Secondary hypertension, unspecified; K21.9 Gastro-esophageal reflux disease without esophagitis; M54.9 Dorsalgia, unspecified; R74.8 Abnormal levels of other serum enzymes; Z98.84 Bariatric surgery status
CPT/HCPCS: 80053; 81001; 85025; 85027; 87086; 96374; J3475; J7120

== ENCOUNTER 2016-07-06 21:21 | Emergency (ER) | payer MEDICAID ==
[~2016-07-06] VITALS: Ht 165.1 cm; Wt 99.0 kg
[~2016-07-06 21:21] MED LIST changes: +AMOX500C PO; -CHOL1CAP34 PO; -CLON.1 PO; -DOCU1CAP39 PO; -HYDR-3535 PO; -HYDR12.57 PO; -LOSA50TA PO; +NIFE30TA61 PO; -OXYC1TAB36 PO; -POTA10SO12 PO; +SULF400T PO; +TRAZ50TA12 PO; -VITA200013 PO; +ZOLO25TA PO
[2016-07-06 21:23] VITALS: BP 117/58; PULSE 69; RESP 15; TEMP 98.5; O2SAT 100
[2016-07-06] MEDS ORDERED: CEPH-460 PO (22:28)
[2016-07-06] MEDS ORDERED: BACT800T5 PO (22:28)
[2016-07-06] MEDS ORDERED: HYDR-3533 PO (22:29)
--- NOTE | 2016-07-06 22:29 | PD ---
HPI Chief Complaint: Skin Problem Time Seen by Provider: 22:27 Travel History International Travel<30 days: No Contact w/Intl Traveler<30days: No Traveled to known affect area: No History of Present Illness HPI 40 year-old female presents to emergency department for evaluation of an abscess on her right distal lower extremity. Patient states she went to her primary care provider's office today who advised she come to the emergency department for I&D of this. Patient states that she would after rastafari and this is why she is here. Patient states she had an abscess white some time ago and took antibiotics and it resolved. She states that it recurred and this time it has not gone away. She reports pain, 8 out of 10 at the site. No limitations range of motion of the adjacent right knee joint. No fever or chills. Patient has no other symptoms reported this time. PFSH Past Medical History Cancer: No Cardiovascular Problems: Yes (HTN) Diabetes: No Diminished Hearing: No Gastrointestinal Disorders: Yes (GERD PRN) GERD: Yes (takes meds) Genitourinary: No Hepatitis: No Hiatal Hernia: No Hypertension: Yes (not diagnosed was supposed to come fri for htn did not) Musculoskeletal: Yes (BACK PAIN) Psychiatric: No Reproductive: No Respiratory: No Thyroid Disease: No ?: Not LMP: EARLY JUNE : 3 Para: 2 : 1 Past Surgical History Abdominal Surgery: Yes (2 C SEC) AICD: No Section: Yes (X2) Cholecystectomy: Yes Gynecologic Surgery: Yes (C SEC X 2) Joint Replacement: No Pacemaker: No Other Surgery: Yes (BARIATRIC SLEEVE) Social History Alcohol Use: No Tobacco Use: No Substance Use: No Allergies-Medications (Allergen,Severity, Reaction): Coded Allergies: Nonsteroidal Anti-Inflammatory Agts (Verified Allergy, Unknown, 07/06/16) PT TOLD NOT TO TAKE THIS AFTER HER BARIATRIC SURGERY Reported Meds & Prescriptions Reported Meds & Active Scripts Active Lortab (Hydrocodone-Acetaminophen) 5-325 Mg Tab 1 Tab PO Q6H PRN Keflex (Cephalexin) 500 Mg Cap 500 Mg PO Q6H 5 Days Bactrim DS (Sulfamethoxazole-Trimethoprim) 800-160 Mg Tab 1 Tab PO BID Gabapentin 600 Mg Tab 600 Mg PO HS Nifedipine ER 24 HR (Nifedipine) 30 Mg Tab 30 Mg PO DAILY Omeprazole 40 Mg Cap 40 Mg PO DAILY Acetaminophen 325 Mg Tab 650 Mg PO Q4H PRN Reported Trazodone (Trazodone HCl) 50 Mg Tab 25 Mg PO HS Zoloft (Sertraline HCl) 25 Mg Tab 25 Mg PO DAILY Review of Systems Except as stated in HPI: all other systems reviewed are Neg Physical Exam Narrative GENERAL: Well-nourished, well-developed female patient, ambulatory and in no acute distress SKIN: Focused skin assessment warm/dry. There is an indurated area in the proximal right distal lower extremity which measures about 12 cm in diameter. It is fluctuant but there is no pointing or drainage. There is a zone of inflammation around it but no lymphangitis. HEAD: Normocephalic. EYES: No scleral icterus. No injection or drainage. NECK: Supple, trachea midline. No JVD or lymphadenopathy. CARDIOVASCULAR: Regular rate and rhythm without murmurs, gallops, or rubs. RESPIRATORY: Breath sounds equal bilaterally. No accessory muscle use. GASTROINTESTINAL: Abdomen soft, non-tender, nondistended. MUSCULOSKELETAL: No cyanosis, or edema. BACK: Nontender without obvious deformity. No CVA tenderness. Data Data Last Documented VS Vital Signs Date Time Temp Pulse Resp B/P Pulse Ox O2 Delivery O2 Flow Rate FiO2 07/06/16 21:23 98.5 69 15 117/58 100 Room Air Orders Wound Culture And Gram Stain (07/06/16 22:26) Sulfamet-Trimeth Ds 800-160 Mg (Bactrim (07/06/16 22:30) Cephalexin (Keflex) (07/06/16 22:30) Ondansetron Odt (Zofran Odt) (07/06/16 22:30) Acetamin-Hydrocod 325-5 Mg ([place] 5-325 (07/06/16 23:00) MDM Medical Decision Making Medical Screen Exam Complete: Yes Emergency Medical Condition: Yes Medical Record Reviewed: Yes Differential Diagnosis Cellulitis versus abscess versus erysipelas versus septic joint Narrative Course 40 year-old female presents to the emergency department for evaluation. Patient has a visible abscess on the proximal aspect of the distal right lower extremity. I&D is complete. Patient is started on oral antibiotics. I've encouraged her to follow-up with her primary care provider or return immediately with any acute worsening of symptoms. She agrees with the splenic care. She'll be started on oral antibiotics outpatient. Procedures Procedure Narrative INCISION AND DRAINAGE OF ABSCESS: The area was prepped and was sterilely draped. Topical ethyl chloride was used to anesthetize the area. The area was properly anesthetized. A number 11 scalpel was used to make a 1-1/2-cm incision across the area of the abscess. Cultures were obtained. The abscess was drained an irrigated with normal saline. Quarter inch iodoform packing was placed in the wound. Sterile dressing applied. Patient advised to have packing removed in two days. Diagnosis Primary Impression: Cellulitis and abscess of leg Referrals: Primary Care Physician Patient Instructions: Abscess Incision and Drainage (ED), General Instructions Additional Instructions: Elevate to reduce pain and swelling Keep the area clean and dry. You may shower Start antibiotic tomorrow morning and take it until it is all gone Follow-up with her primary care provider Packing is to be removed in 2 days. This can be done by you, your primary care provider, or here in the emergency department Return immediately to the emergency department with any acute worsening of symptoms Med/Other Pt SpecificInfo: Prescription(s) given Scripts Hydrocodone-Acetaminophen (Lortab)5-325 Mg Tab1 Tab PO Q6H PRN (PAIN) #15 TAB Ref 0 Prov:Leonarda Ordoñez MD 07/06/16 Cephalexin (Keflex)500 Mg Dor516 Mg PO Q6H 5 Days Ref 0 Prov:Beatriz Funes 07/06/16 Sulfamethoxazole-Trimethoprim (Bactrim DS)800-160 Mg Tab1 Tab PO BID #20 TAB Ref 0 Prov:Beatriz Funes 07/06/16 Disposition: 01 DISCHARGE HOME Condition: Stable Beatriz Funes July 06, 2016 22:28
[2016-07-06] MEDS ORDERED: ONDANSETRON ODT 4 MG TAB PO ONE (22:30)
[2016-07-06] MEDS ORDERED: SULFAMETHOXAZOLE-TRIMETHOPRIM DS 800-160 MG TAB PO ONE (22:30)
[2016-07-06] MEDS ORDERED: CEPHALEXIN MONOHYDRATE 500 MG CAP PO ONE (22:30)
[2016-07-06] MEDS ORDERED: ACETAMINOPHEN/HYDROcodone 325 MG/5 MG TAB PO ONE (23:00)
[2016-07-26] MEDS ORDERED: NIFE30TA61 PO (10:55)
[2016-08-01] MEDS ORDERED: ACET325C (14:49)
== END 2016-07-06 23:13 | disposition home or self-care (01) ==
LOC: NEPK 21:21
DX: L02.415 Cutaneous abscess of right lower limb (principal); I10 Essential (primary) hypertension; B95.61 Methicillin susceptible Staphylococcus aureus infection as the cause of diseases classified elsewhere
CPT/HCPCS: 10061; 86403; 87070; 87186; 87205

== ENCOUNTER 2017-03-01 14:59 | Emergency (ER) | payer MEDICAID ==
[~2017-03-01 14:59] MED LIST changes: -ACET325T PO; -AMOX500C PO; +HYDR-3516 PO; -NIFE30TA61 PO; +PARAIUD; +SPRI28TA PO; -SULF400T PO; -TRAZ50TA12 PO; +ZANT150T2 PO; -ZOLO25TA PO
[2017-03-01 15:40] VITALS: BP 122/69; PULSE 55; RESP 20; TEMP 97.9; O2SAT 100
[2017-03-01] MEDS ORDERED: CYCL10TA PO (17:00)
--- NOTE | 2017-03-01 17:10 | PD ---
HPI Chief Complaint: Syncope/Near-Syncope Time Seen by Provider: 16:34 Travel History International Travel<30 days: No Contact w/Intl Traveler<30days: No Traveled to known affect area: No History of Present Illness HPI 41-year-old woman presents ED following a syncopal episode. She is a history of reactive surgery. She also has a history of abnormal uterine bleeding and dysmenorrhea. She had an IUD placed his continued to have abnormal heavy periods. She started control pills a month or 2 ago for the same. She started having menstrual bleeding today. With this she had severe lower abdominal cramping. When she had the severe cramping she also an episode of syncope. She was seated. States she woke up in the nurse's station. She states this happened to her one time in the past. She has chronic constipation but no change in her bowel movements. No nausea or vomiting. No chest pain or trouble breathing. No palpitations. She otherwise has been feeling generally well and healthy. History Past Medical History Narrative Medical Anemia History gastric bypass Abnormal uterine bleeding Tetanus Vaccination: > 5 Years Influenza Vaccination: No LMP: Heavy bleeding off and on X's 1 year : 3 Para: 2 Social History Alcohol Use: No Tobacco Use: No Allergies-Medications (Allergen,Severity, Reaction): Coded Allergies: diclofenac (Verified Allergy, Unknown, 03/01/17) PT TOLD NOT TO TAKE THIS AFTER HER BARIATRIC SURGERY etodolac (Verified Allergy, Unknown, 03/01/17) PT TOLD NOT TO TAKE THIS AFTER HER BARIATRIC SURGERY flurbiprofen (Verified Allergy, Unknown, 03/01/17) PT TOLD NOT TO TAKE THIS AFTER HER BARIATRIC SURGERY ibuprofen (Verified Allergy, Unknown, 03/01/17) PT TOLD NOT TO TAKE THIS AFTER HER BARIATRIC SURGERY indomethacin (Unverified Allergy, Unknown, 03/01/17) PT TOLD NOT TO TAKE THIS AFTER HER BARIATRIC SURGERY ketoprofen (Verified Allergy, Unknown, 03/01/17) PT TOLD NOT TO TAKE THIS AFTER HER BARIATRIC SURGERY ketorolac (Verified Allergy, Unknown, 03/01/17) PT TOLD NOT TO TAKE THIS AFTER HER BARIATRIC SURGERY naproxen (Verified Allergy, Unknown, 03/01/17) PT TOLD NOT TO TAKE THIS AFTER HER BARIATRIC SURGERY oxaprozin (Verified Allergy, Unknown, 03/01/17) PT TOLD NOT TO TAKE THIS AFTER HER BARIATRIC SURGERY Reported Meds & Prescriptions Reported Meds & Active Scripts Active Sprintec 28 (Norgestimate-Ethinyl Estradiol) 0.25-35 mg-Mcg Tab 1 Tab PO DAILY Gabapentin 600 Mg Tab 600 Mg PO HS Reported Flexeril (Cyclobenzaprine HCl) 10 Mg Tab 10 Mg PO HS Paragard Intrauterine Process Safety Engineer (Copper (Iud)) 380 Square Mm Iud 1 Review of Systems Except as stated in HPI: all other systems reviewed are Neg Physical Exam Narrative GENERAL: Well-appearing 41-year-old woman, no acute distress. Obese with redundant skin following bariatric surgery. SKIN: Focused skin assessment warm/dry. HEAD: Atraumatic. Normocephalic. EYES: Pupils equal and round. No scleral icterus. No injection or drainage. ENT: No nasal bleeding or discharge. Mucous membranes pink and moist. NECK: Trachea midline. No JVD. CARDIOVASCULAR: Regular rate and rhythm. No murmur appreciated. RESPIRATORY: No accessory muscle use. Clear to auscultation. Breath sounds equal bilaterally. GASTROINTESTINAL: Abdomen soft, non-tender, nondistended. Hepatic and splenic margins not palpable. MUSCULOSKELETAL: No obvious deformities. No edema. NEUROLOGICAL: Awake and alert. No obvious cranial nerve deficits. Motor grossly within normal limits. Normal speech. PSYCHIATRIC: Appropriate mood and affect; insight and judgment normal. Data Data Last Documented VS Vital Signs Date Time Temp Pulse Resp B/P (MAP) Pulse Ox O2 Delivery O2 Flow Rate FiO2 03/01/17 15:40 97.9 55 20 122/69 (86) 100 Orders Orders Electrocardiogram (03/01/17 ) Complete Blood Count With Diff (03/01/17 16:56) Comprehensive Metabolic Panel (03/01/17 16:56) Ed Urine Pregnancytest Poc (03/01/17 16:56) Iv Access Insert/Monitor (03/01/17 16:56) Labs Laboratory Tests Test 03/01/17 17:10 White Blood Count 11.9 TH/MM3 Red Blood Count 4.03 MIL/MM3 Hemoglobin 11.0 GM/DL Hematocrit 35.6 % Mean Corpuscular Volume 88.2 FL Mean Corpuscular Hemoglobin 27.3 PG Mean Corpuscular Hemoglobin Concent 30.9 % Red Cell Distribution Width 13.4 % Platelet Count 349 TH/MM3 Mean Platelet Volume 8.3 FL CBC Comment AUTO DIFF Blood Urea Nitrogen 15 MG/DL Creatinine 0.85 MG/DL Random Glucose 82 MG/DL Total Protein 7.9 GM/DL Albumin 3.2 GM/DL Calcium Level 8.7 MG/DL Alkaline Phosphatase 72 U/L Aspartate Amino Transf (AST/SGOT) 26 U/L Alanine Aminotransferase (ALT/SGPT) 22 U/L Total Bilirubin 0.5 MG/DL Sodium Level 137 MEQ/L Potassium Level 4.4 MEQ/L Chloride Level 106 MEQ/L Carbon Dioxide Level 24.2 MEQ/L Anion Gap 7 MEQ/L Estimat Glomerular Filtration Rate 90 ML/MIN [facility] Medical Decision Making Medical Screen Exam Complete: Yes Emergency Medical Condition: Yes Interpretation(s) My review of EKG: Normal sinus rhythm at a rate of 61, normal axis, normal intervals, no acute ischemia. LABS: CBC is unremarkable. CMP is unremarkable. Differential Diagnosis Vasovagal episode, anemia, dehydration, syncope, arrhythmia, other Narrative Course Medical decision making INITIAL: 41-year-old woman presents emergency department with syncopal episode. Seems to be related to some dysmenorrhea. She looks well. Benign exam. Pain is much improved. We'll check EKG and labs, likely outpatient follow-up. Diagnosis Primary Impression: Syncope Patient Instructions: General Instructions Additional Instructions: Follow-up with her primary doctor in the next 2-4 days. Return to the emergency department for any worsening chest pain, trouble breathing, repeat fainting spells, or any other new or worsening symptoms. Med/Other Pt SpecificInfo: No Change to Meds Disposition: 01 DISCHARGE HOME Condition: Stable Lencho Linda MD Mar 01, 2017 17:10
[2017-03-01 17:37] LABS: CHLORIDE 106 MEQ/L (98-107); SODIUM (NA) 137 MEQ/L (136-145)
[2017-03-01 17:41] LABS: ALBUMIN 3.2 GM/DL (3.4-5.0); BICARBONATE 24.2 MEQ/L (21.0-32.0); BLOOD UREA NITROGEN 15 MG/DL (7-18); CALCIUM 8.7 MG/DL (8.5-10.1); GLUCOSE,RANDOM 82 MG/DL (74-106)
[2017-03-01 17:42] LABS: HEMATOCRIT 35.6 % (35.0-46.0); MEAN CELL VOLUME 88.2 FL (80.0-100.0); MEAN CORPUSCULAR HEMOGLOBIN 27.3 PG (27.0-34.0); MEAN CORPUSCULAR HGB CONC 30.9 % (32.0-36.0); MEAN PLATELET VOLUME 8.3 FL (7.0-11.0); PLATELET COUNT 349 TH/MM3 (150-450); RED BLOOD COUNT 4.03 MIL/MM3 (4.00-5.30); RED CELL DISTRIBUTION WIDTH 13.4 % (11.6-17.2); WHITE BLOOD COUNT 11.9 TH/MM3 (4.0-11.0)
[2017-03-01 17:44] LABS: ALT (GPT) 22 U/L (10-53); AST (GOT) 26 U/L (15-37)
[2017-03-01 17:45] LABS: CREATININE 0.85 MG/DL (0.50-1.00); GLOMERULAR FILTRATION RATE 90 ML/MIN (>89)
[2017-03-01 17:46] LABS: TOTAL BILIRUBIN ADULT 0.5 MG/DL (0.2-1.0); TOTAL PROTEIN 7.9 GM/DL (6.4-8.2)
[2017-03-01 17:47] LABS: ALKALINE PHOSPHATASE 72 U/L (45-117)
[2017-03-01 18:59] LABS: BASOPHILS 1 % (0-2); LYMPHOCYTES 34 % (9-44); MONOCYTES 6 % (0-8); NEUTROPHIL # MANUAL DIFF 6.9 TH/MM3 (1.8-7.7); POLYS (SEG NEUTROPHILS) 58 % (16-70)
--- NOTE | 2017-03-02 20:39 | EKG ---
Date Performed: 03/01/2017 Time Performed: 17:17:12 PTAGE: 41 years EKG: Sinus rhythm NORMAL ECG SINCE PRIOR TRACING NO SIGNIFICANT CHANGE PREVIOUS TRACING : 03/14/2016 14.50 DOCTOR: Galina Rhodes Interpretating Date/Time 03/02/2017 20:38:27
[2017-03-10] MEDS ORDERED: SPRI28TA PO (08:52)
== END 2017-03-01 18:50 | disposition home or self-care (01) ==
LOC: PHED 14:59
DX: R55 Syncope and collapse (principal); N94.6 Dysmenorrhea, unspecified; N92.0 Excessive and frequent menstruation with regular cycle; Z97.5 Presence of (intrauterine) contraceptive device
CPT/HCPCS: 80053; 84703; 85007; 85027; 93005; 99284